=== PATIENT | female | born 1985 | race Caucasian/White ===

== ENCOUNTER 2017-05-08 16:38 | Emergency (ER) | payer BC ==
[2017-05-08 17:07] VITALS: BP 170/100; PULSE 83; RESP 16; TEMP 98
--- NOTE | 2017-05-08 18:11 | ED ---
General Adult HPI - General Chief complaint: Extremity Injury, Upper Stated complaint: Elbow Injury Time Seen by Provider: 05/08/17 17:12 Source: patient, RN notes reviewed Mode of arrival: ambulatory Limitations: no limitations - History of Present Illness Initial comments: Patient 31-year-old female who presents emergency room today with a chief complaint of a fall that occurred 4 days ago. She states she slipped on the ice falling down to the right elbow. She states it was a little bruised and sore for a few days per she states her last today she's noticed increased pain and redness and swelling to the area. She states it is more tender and worse with movements. Patient denies any other complaints or symptoms currently. She does admit to a little abrasion to the back of the elbow. Patient denies any recent fever, chills, shortness of breath, chest pain, back pain, abdominal pain, nausea or vomiting, numbness or tingling,headaches or visual changes, or any other complaints. - Related Data Home Medications Medication Instructions Recorded Confirmed Fexofenadine HCl [Karina Allergy] 180 mg PO DAILY PRN 05/08/17 05/08/17 Multivitamins, Thera [Multivitamin 1 tab PO DAILY 05/08/17 05/08/17 (formulary)] Previous Rx's Medication Instructions Recorded Cephalexin [Keflex] 500 mg PO Q12HR 10 Days cap 05/08/17 Allergies Allergy/AdvReac Type Severity Reaction Status Date / Time No Known Allergies Allergy Verified 05/08/17 17:13 Review of Systems ROS Statement: Those systems with pertinent positive or pertinent negative responses have been documented in the HPI. ROS Other: All systems not noted in ROS Statement are negative. Past Medical History Past Medical History: No Reported History History of Any Multi-Drug Resistant Organisms: None Reported Past Surgical History: No Surgical Hx Reported Past Psychological History: No Psychological Hx Reported Smoking Status: Never smoker Past Alcohol Use History: None Reported Past Drug Use History: None Reported General Exam - General Exam Comments Initial Comments: General: The patient is awake and alert, in no distress, and does not appear acutely ill. Neck: The neck is supple, there is no tenderness or JVD. Musculoskeletal: Patient does have moderate swelling to the posterior aspect of the right elbow. There is an abrasion centrally. No active drainage. There is local redness surrounding the area. It is warm on palpation. She shows good range of motion. Locally tender over the proximal ulna. Sensations are intact. Pulses are equal bilaterally 2+. Strength 5/5. Neurological: A&O x 3. CN II-XII intact, There are no obvious motor or sensory deficits. Coordination appears grossly intact. Speech is normal. Skin: Skin is warm and dry and no rashes or lesions are noted. Psychiatric: Normal mood and affect. Limitations: no limitations Course Vital Signs 05/08/17 17:05 Temperature 98 F Pulse Rate 83 Respiratory 16 Rate Blood Pressure 170/100 O2 Sat by Pulse 99 Oximetry Medical Decision Making - Medical Decision Making X-ray reviewed and is negative for any acute fracture dislocation. Results were discussed with the patient. Patient will be started on antibiotics to cover for cellulitis. Advised return if there is any increased worsening symptoms. Patient states understanding and is in agreement. Disposition Clinical Impression: Cellulitis Disposition: HOME SELF-CARE Condition: Good Instructions: Cellulitis (ED) Additional Instructions: Please use medication as discussed. Please follow-up with family doctor in the next 2 days of symptoms have not improved. Please return to emergency room if the symptoms increase or worsen or for any other concerns. Prescriptions: Cephalexin [Keflex] 500 mg PO Q12HR 10 Days cap Referrals: None,Stated [Primary Care Provider] - 1-2 days Caridad Butler MD [STAFF PHYSICIAN] - 1-2 days Perez Hickey DO [Doctor of Osteopathic Medicine] - 1-2 days Time of Disposition: 18:35
--- NOTE | 2017-05-08 18:13 | XR ---
EXAMINATION TYPE: XR elbow complete RT DATE OF EXAM: 05/08/2017 COMPARISON: NONE HISTORY: Fall with pain. TECHNIQUE: 4 views right elbow were obtained. FINDINGS: No acute fracture or subluxation is seen. There is no joint effusion identified. There is n o radiopaque foreign body. There is some subcuticular edema noted in the forearm. IMPRESSION: No acute abnormality.
[2017-05-08] MEDS ORDERED: CEPHALEXIN 500MG STARTER PACK 4 CAP BTL PO STA (18:35)
== END 2017-05-08 18:54 | disposition home or self-care (01) ==
LOC: EC 16:38
DX: L03.113 Cellulitis of right upper limb (principal); W00.0XXA Fall on same level due to ice and snow, initial encounter
CPT/HCPCS: 99283

== ENCOUNTER → 2020-03-26 | Outpatient (CLI) | payer BC ==
--- NOTE | 2020-03-26 10:49 | US ---
EXAMINATION TYPE: US kidneys/renal and bladder DATE OF EXAM: 03/26/2020 COMPARISON: NONE CLINICAL HISTORY: N18.9 Chronic Kidney Disease. abnormal labs. No pain. EXAM MEASUREMENTS: Right Kidney: 7.5 x 4.0 x 2.8 cm Left Kidney: 7.4 x 3.7 x 4.0 cm Right Kidney: Appears echogenic and small in size Left Kidney: Appears echogenic and small in size Bladder: anechoic, moderately distended Bilateral Jets not seen There is no evidence for hydronephrosis at this point in time. No nephrolithiasis is seen. No josue s are identified. The urinary bladder is anechoic. Bilateral ureteral jets are seen. IMPRESSION: The findings suggest medical renal disease.
== END | disposition home or self-care (01) ==
LOC: RADUSWWP 10:20
PROVIDERS: ATTEND Family Medicine
DX: N18.9 Chronic kidney disease, unspecified (principal)
CPT/HCPCS: 76770

== ENCOUNTER → 2021-02-20 | Outpatient (CLI) | payer BC ==
--- NOTE | 2021-02-21 09:36 | ECHOF ---
Referral Reason:R01.1 MEASUREMENTS -------- HEIGHT: 160.0 cm WEIGHT: 62.6 kg BP: RVIDd: 2.4 cm (< 3.3) IVSd: 1.0 cm (0.6 - 1.1) LVIDd: 3.8 cm (3.9 - 5.3) LVPWd: 0.9 cm (0.6 - 1.1) IVSs: 1.5 cm LVIDs: 2.8 cm LVPWs: 1.1 cm LAESV Index (A-L): 18.69 ml/m Ao Diam: 2.6 cm (2.0 - 3.7) AV Cusp: 1.7 cm (1.5 - 2.6) LA Diam: 3.1 cm (2.7 - 3.8) MV EXCURSION: 18.482 mm (> 18.000) MV EF SLOPE: 122 mm/s (70 - 150) EPSS: 0.2 cm MV E Sebastian: 0.97 m/s MV DecT: 191 ms MV A Sebastian: 0.63 m/s MV E/A Ratio: 1.54 RAP: 5.00 mmHg RVSP: 25.42 mmHg FINDINGS -------- Sinus rhythm. This was a technically adequate study. The left ventricular size is normal. Left ventricular wall thickness is normal. Overall left vent ricular systolic function is normal with, an EF between 55 - 60 %. The diastolic filling pattern is normal for the age of the patient 10.96. The right ventricle is normal in size. Normal LA size by volume 22+/-6 ml/m2. The right atrial size is normal. Interatrial and interventricular septum intact. The aortic valve is trileaflet and appears structurally normal. There is no evidence of aortic regu rgitation. There is no evidence of aortic stenosis. There is trace to mild mitral regurgitation. Mild tricuspid regurgitation present. There is no evidence of pulmonary hypertension. The right v entricular systolic pressure, as measured by Doppler, is 25.42mmHg. There is no pulmonic regurgitation present. The aortic root size is normal. Normal inferior vena cava with normal inspiratory collapse consistent with estimated right atrial pre ssure of 5 mmHg. There is no pericardial effusion. CONCLUSIONS -------- 1. The left ventricular size is normal. 2. Left ventricular wall thickness is normal. 3. Overall left ventricular systolic function is normal with, an EF between 55 - 60 %. 4. The diastolic filling pattern is normal for the age of the patient 10.96 5. There is trace to mild mitral regurgitation. 6. Mild tricuspid regurgitation present. CRIME ANALYST: Dorinda Escobar RDCS
== END | disposition home or self-care (01) ==
LOC: RADECHMAIN 14:39
PROVIDERS: ATTEND Family Medicine
DX: I34.0 Nonrheumatic mitral (valve) insufficiency (principal); I07.1 Rheumatic tricuspid insufficiency
CPT/HCPCS: 93306

== ENCOUNTER → 2021-06-02 | Outpatient (CLI) | payer BC ==
--- NOTE | 2021-06-02 14:38 | XR ---
EXAMINATION TYPE: XR chest 2V DATE OF EXAM: 06/02/2021 COMPARISON: NONE TECHNIQUE: PA and lateral views submitted. HISTORY: Presurgical FINDINGS: The lungs are clear and there is no pneumothorax, pleural effusion, or focal pneumonia. Heart size normal. No overt failure. IMPRESSION: 1. No acute process.
== END | disposition home or self-care (01) ==
LOC: RADXRMAIN 14:17
PROVIDERS: ATTEND Internal Medicine
DX: N18.5 Chronic kidney disease, stage 5 (principal)
CPT/HCPCS: 71046

== ENCOUNTER 2021-06-06 07:39 | Day surgery (SDC) | payer BC ==
[2021-06-05 10:16] VITALS: BMI 24.4
--- NOTE | 2021-06-06 07:13 | P.GSHP ---
History of Present Illness H&P Date: 06/06/21 Chief Complaint: Renal failure 35-year-old female here today for peritoneal dialysis catheter. She was previously seen in the office setting. Has had progressive renal insufficiency. No abdominal surgeries. Patient would like to proceed with peritoneal dialysis as opposed to hemodialysis. Past Medical History Past Medical History: Hypertension, Renal Disease Additional Past Medical History / Comment(s): renal failure, to start dialysis, no sx., still w/good urine output History of Any Multi-Drug Resistant Organisms: None Reported Past Surgical History: No Surgical Hx Reported Additional Past Anesthesia/Blood Transfusion Reaction / Comment(s): no family problems, pt has never had sedation Smoking Status: Never smoker - Past Family History Mother Family Medical History: No Reported History Medications and Allergies Home Medications Medication Instructions Recorded Confirmed Type Fexofenadine HCl [Karina Allergy] 180 mg PO DAILY 05/08/17 06/05/21 History Multivitamins, Thera [Multivitamin 1 tab PO DAILY 05/08/17 06/05/21 History (formulary)] Allopurinol [Zyloprim] 100 mg PO DAILY 06/05/21 06/05/21 History Ergocalciferol [Vitamin D2 (1250 1,250 mcg PO WEEKLY 06/05/21 06/05/21 History Mcg = 19173 Iu)] Ferrous Sulfate [Feosol] 325 mg PO Q2D 06/05/21 06/05/21 History Furosemide [Lasix] 40 mg PO Q4D 06/05/21 06/05/21 History calcitrioL [Calcitriol] 0.25 mcg PO WEEKLY 06/05/21 06/05/21 History hydrALAZINE HCL [Apresoline] 50 mg PO TID 06/05/21 06/05/21 History Allergies Allergy/AdvReac Type Severity Reaction Status Date / Time No Known Allergies Allergy Verified 06/05/21 09:40 Surgical - Exam Physical exam: General: Well-developed, well-nourished HEENT: Normocephalic, sclerae nonicteric Abdomen: Nontender, nondistended Extremities: No edema Neuro: Alert and oriented Assessment and Plan (1) Renal failure Narrative/Plan: Will proceed with peritoneal dialysis catheter insertion at this time. Risks of bleeding, infection, leak, abscess, bowel injury, catheter malfunction, anesthesia complications reviewed. She understands and wishes to proceed. Status: Acute Code(s): N19 - UNSPECIFIED KIDNEY FAILURE SNOMED Code(s): 82215174
[~2021-06-06 07:39] MED LIST: ACETAMINOPHEN TAB 500 MG TAB PO PRN; DEXAMETHASONE SOD PHOSPHATE 4 MG/ML 1 ML VIAL IV ONE; HEPARIN SODIUM,PORCINE/PF 5,000 UNIT/0.5 ML SYRINGE SQ PRN; HYDROmorphone 0.5 MG/0.5 ML SYRINGE IVP PRN; LACTATED RINGERS 1,000 ML IV SCH; MIDAZOLAM 2 MG/2 ML VIAL IV PRN; ONDANSETRON 4 MG/2 ML VIAL IVP ONE; SCOPOLAMINE 1 MG/72 HR PATCH TRANSDERM ONE
[2021-06-06] MEDS ORDERED: HEPARIN SODIUM,PORCINE/PF 5,000 UNIT/0.5 ML SYRINGE SQ ONE (08:30)
[2021-06-06] MEDS ORDERED: ACETAMINOPHEN TAB 500 MG TAB ONE (08:30)
[2021-06-06] MEDS ORDERED: FAMOTIDINE 20 MG/2 ML VIAL IVP ONE (08:33)
[2021-06-06] MEDS ORDERED: fentaNYL (PF) 50 MCG/ML 2 ML AMP ONE (08:53)
[2021-06-06] MEDS ORDERED: LIDOCAINE 1% INJ 10MG/ML (20 ML MDV) ONE (08:53)
[2021-06-06] MEDS ORDERED: PROPOFOL 10 MG/ML 20 ML VIAL IV ONE (08:53)
[2021-06-06] MEDS ORDERED: PHENYLEPHRINE-0.9% NACL SYG 1,000 MCG/10 ML SYRINGE ONE (08:53)
[2021-06-06] MEDS ORDERED: MIDAZOLAM 2 MG/2 ML VIAL ONE (08:53)
[2021-06-06 08:57] LABS: Potassium 4.6 mmol/L (3.5-5.1)
[2021-06-06] MEDS ORDERED: BUPIVACAIN-EPI 0.25%-1:200,000 30 ML VIAL SQ ONE (09:04)
[2021-06-06] MEDS ORDERED: MINERAL OIL 1 APPLIC/ML OIL MISCELLANE ONE (09:04)
[2021-06-06] MEDS ORDERED: traMADol 50 MG TAB PO PRN (09:50)
[2021-06-06] MEDS ORDERED: NALOXONE 0.4 MG/ML 1 ML VIAL IV PRN (09:50)
--- NOTE | 2021-06-06 09:53 | P.OP ---
Date of Procedure: 06/06/21 Procedure(s) Performed: PREOPERATIVE DIAGNOSIS: Renal failure POSTOPERATIVE DIAGNOSIS: Same PROCEDURE: Peritoneal dialysis catheter insertion SURGEON: Rand EBL: Minimal ANESTHESIA: Gen. COMPLICATIONS: None OPERATIVE PROCEDURE: The patient was placed in the operative table in the supine position. The abdomen was prepped and draped in usual sterile fashion. A small vertical incision was made in the right periumbilical location. Dissection down through the subcutaneous tissues took place using electrocautery. The anterior rectus was divided vertically using the scalpel. The rectus was bluntly. The posterior rectus was visualized. An 0 Vicryl pursestring was placed. A small opening in the posterior rectus fascia and peritoneum took place using a Metzenbaum scissors. There were no adhesions to the suture that was placed. The pigtail catheter was advanced into the pelvis over a stylette. No resistance was met. The inner cuff was secured to the fascia using the 0 Vicryl pursestring that was placed. The catheter was tunneled to an exit site in the right lateral lower quadrant. The catheter was connected to the 1 L bag of saline and approximated 800 mL of saline was easily introduced into the peritoneal cavity. The fluid was then allowed to evacuate. The majority of the fluid was returned. The anterior rectus fascia was then reapproximated using a running 0 Vicryl stitch. The subcutaneous tissues reprepped using 3-0 Vicryl sutures and the skin using 4-0 Monocryl sutures. The outpatient dialysis adapter was applied to the end of the catheter. Sterile dressings were then applied after skin glue was placed over the incision. DISPOSITION: Stable to recovery room
[2021-06-06 09:57] VITALS: TEMP 96.8
[2021-06-06 10:59] VITALS: RESP 16
[2021-06-06 11:16] VITALS: BP 138/92; PULSE 69
== END 2021-06-06 11:20 | disposition home or self-care (01) ==
LOC: OR 07:39
PROVIDERS: ATTEND Surgery
DX: N19 Unspecified kidney failure (principal); I10 Essential (primary) hypertension; Z79.899 Other long term (current) drug therapy
CPT/HCPCS: 49421; 81025; 82565; 84132; 84520; C1752; J2250; J1100; J0690; J2405; J2001; J3010; J2370; J2704; J1644

== ENCOUNTER 2023-02-04 14:40 | Inpatient (IN) | payer BC ==
--- NOTE | 2023-02-04 16:29 | ED ---
Recheck HPI - General Chief Complaint: Recheck/Abnormal Lab/Rx Stated Complaint: infection Time Seen by Provider: 02/04/23 16:28 Source: patient Mode of arrival: ambulatory Limitations: no limitations - History of Present Illness Initial Comments: 37-year-old female presenting after being sent by her jet ski mechanic for positive blood cultures. Patient was having cloudy fluid with her peritoneal dialysis, which prompted her physician she dropped blood cultures that came back positive today. Patient states that she is having no symptoms, denies any fever, chills, nausea, vomiting. - Related Data Home Medications Medication Instructions Recorded Confirmed Furosemide [Lasix] 40 mg PO DIRECTED 06/05/21 02/04/23 calcitrioL [Calcitriol] 0.25 mcg PO HS 06/05/21 02/04/23 Atorvastatin [Lipitor] 20 mg PO HS 02/04/23 02/04/23 Ezetimibe [Zetia] 10 mg PO HS 02/04/23 02/04/23 Famotidine [Pepcid] 20 mg PO BID PRN 02/04/23 02/04/23 Levothyroxine Sodium [Synthroid] 50 mcg PO DAILY 02/04/23 02/04/23 Losartan Potassium 50 mg PO DAILY@1330 02/04/23 02/04/23 Magnesium Oxide [Mag-Ox] 400 mg PO W/SUPPER 02/04/23 02/04/23 Sodium Bicarbonate Tab 650 mg PO DAILY@1330 02/04/23 02/04/23 Allergies Allergy/AdvReac Type Severity Reaction Status Date / Time No Known Allergies Allergy Verified 02/04/23 19:44 Review of Systems ROS Statement: Those systems with pertinent positive or pertinent negative responses have been documented in the HPI. ROS Other: All systems not noted in ROS Statement are negative. Past Medical History Past Medical History: Renal Disease Additional Past Medical History / Comment(s): end stage kidney failure, dialysis History of Any Multi-Drug Resistant Organisms: None Reported Past Surgical History: No Surgical Hx Reported Additional Past Surgical History / Comment(s): dilaysis cath Past Psychological History: No Psychological Hx Reported Smoking Status: Never smoker Past Alcohol Use History: None Reported Past Drug Use History: None Reported General Exam - General Exam Comments Initial Comments: Visual Physical Exam Vital signs reviewed General: Well-appearing, nontoxic, no acute distress. Head: Normocephalic, atraumatic Eyes: PERRLA, EOMI ENT: Airway patent Chest: Nonlabored breathing Skin: No visual rash, normal skin tone Neuro: Alert and oriented 3 Musculoskeletal: No gross abnormalities Limitations: no limitations General appearance: alert, in no apparent distress Head exam: Present: atraumatic, normocephalic, normal inspection Eye exam: Present: normal appearance Neck exam: Present: normal inspection Respiratory exam: Present: normal lung sounds bilaterally. Absent: respiratory distress, wheezes, rales, rhonchi, stridor Cardiovascular Exam: Present: regular rate, normal rhythm, normal heart sounds. Absent: systolic murmur, diastolic murmur, rubs, gallop, clicks Neurological exam: Present: alert, oriented X3 Psychiatric exam: Present: normal affect, normal mood Skin exam: Present: warm, dry, intact, normal color. Absent: rash Course Vital Signs 02/04/23 02/05/23 15:13 00:35 Temperature 97.6 F Pulse Rate 79 Respiratory 16 Rate Blood Pressure 139/83 154/95 O2 Sat by Pulse 100 Oximetry Medical Decision Making - Medical Decision Making Was pt. sent in by a medical professional or institution (, PA, BUSINESS ANALYST PROJECT MANAGER, urgent care, hospital, or skilled nursing...) When possible be specific @ -She was sent in by her jet ski mechanic Dr. Mckeon Did you speak to anyone other than the patient for history (EMS, parent, family, police, friend...)? What history was obtained from this source @ -No Did you review nursing and triage notes (agree or disagree)? Why? @ -I reviewed and agree with nursing and triage notes Were old charts reviewed (outside hosp., previous admission, EMS record, old EKG, old radiological studies, urgent care reports/EKG's, skilled nursing records)? Report findings @ -No old charts were reviewed Differential Diagnosis (chest pain, altered mental status, abdominal pain women, abdominal pain men, vaginal bleeding, weakness, fever, dyspnea, syncope, headache, dizziness, GI bleed, back pain, seizure, CVA, palpatations, mental health, musculoskeletal)? @ -not applicable EKG interpreted by me (3pts min.). @ -As above X-rays interpreted by me (1pt min.). @ -None done CT interpreted by me (1pt min.). @ -None done U/S interpreted by me (1pt. min.). @ -None done What testing was considered but not performed or refused? (CT, X-rays, U/S, labs)? Why? @ -None What meds were considered but not given or refused? Why? @ -None Did you discuss the management of the patient with other professionals (professionals i.e. Dr., PA, BUSINESS ANALYST PROJECT MANAGER, lab, RT, psych nurse, rn social services, salon sales consultant, teacher, loan officer assistant, leather case finisher)? Give summary @ -I spoke with Joyce Daniels from [facility] accepted admission Was smoking cessation discussed for >3mins.? @ -No Was critical care preformed (if so, how long)? @ -No Were there social determinants of health that impacted care today? How? (Homelessness, low income, unemployed, alcoholism, drug addiction, transportation, low edu. Level, literacy, decrease access to med. care, nursing home, rehab)? @ -No Was there de-escalation of care discussed even if they declined (Discuss DNR or withdrawal of care, Hospice)? DNR status @ -No What co-morbidities impacted this encounter? (DM, HTN, Smoking, COPD, CAD, Cancer, CVA, ARF, Chemo, Hep., AIDS, mental health diagnosis, sleep apnea, morbid obesity)? @ -Peritoneal dialysis Was patient admitted / discharged? Hospital course, mention meds given and route, prescriptions, significant lab abnormalities, going to OR and other pertinent info. @ -37-year-old female sent in by her jet ski mechanic for positive blood cultures. Patient is otherwise asymptomatic. She will be admitted and is treated with an empiric dose of Zosyn. Blood cultures are redrawn prior to antibiotic initiation. Patient is agreeable with this plan. I discussed this case with my attending Dr. Lux Undiagnosed new problem with uncertain prognosis? @ -No Drug Therapy requiring intensive monitoring for toxicity (Heparin, Nitro, Insulin, Cardizem)? @ -No Were any procedures done? @ -No Diagnosis/symptom? @ -Peritonitis Acute, or Chronic, or Acute on Chronic? @ -Acute Uncomplicated (without systemic symptoms) or Complicated (systemic symptoms)? @ -Complicated Side effects of treatment? @ -No Exacerbation, Progression, or Severe Exacerbation? @ -No Poses a threat to life or bodily function? How? (Chest pain, [place], [place], pneumonia, PE, COPD, DKA, ARF, appy, cholecystitis, CVA, Diverticulitis, Homicidal, Suicidal, threat to staff... and all critical care pts) @ -yes - Lab Data Result diagrams: 02/04/23 17:00 02/04/23 17:00 Lab Results 02/04/23 02/04/23 02/04/23 Range/Units 17:00 17:00 17:00 WBC 7.9 (3.8-10.6) k/uL RBC 3.95 (3.80-5.40) m/uL Hgb 12.5 (11.4-16.0) gm/dL Hct 37.4 (34.0-46.0) % MCV 94.7 (80.0-100.0) fL MCH 31.6 (25.0-35.0) pg MCHC 33.4 (31.0-37.0) g/dL RDW 12.9 (11.5-15.5) % Plt Count 274 (150-450) k/uL MPV 7.5 Neutrophils % 72 % Lymphocytes % 20 % Monocytes % 5 % Eosinophils % 2 % Basophils % 0 % Neutrophils # 5.7 (1.3-7.7) k/uL Lymphocytes # 1.5 (1.0-4.8) k/uL Monocytes # 0.4 (0-1.0) k/uL Eosinophils # 0.2 (0-0.7) k/uL Basophils # 0.0 (0-0.2) k/uL Sodium 136 L (137-145) mmol/L Potassium 3.8 (3.5-5.1) mmol/L Chloride 99 (98-107) mmol/L Carbon Dioxide 23 (22-30) mmol/L Anion Gap 14 mmol/L BUN 77 H (7-17) mg/dL Creatinine 7.65 H* (0.52-1.04) mg/dL Est GFR (CKD-EPI)AfAm 7 (>60 ml/min/1.73 sqM) Est GFR (CKD-EPI)NonAf 6 (>60 ml/min/1.73 sqM) Glucose 94 (74-99) mg/dL Plasma Lactic Acid Francesco 0.7 (0.7-2.0) mmol/L Calcium 9.4 (8.4-10.2) mg/dL Total Bilirubin 0.4 (0.2-1.3) mg/dL AST 32 (14-36) U/L ALT 32 (4-34) U/L Alkaline Phosphatase 128 H (38-126) U/L Total Protein 7.0 (6.3-8.2) g/dL Albumin 4.2 (3.5-5.0) g/dL Disposition Clinical Impression: Peritonitis Disposition: ADMITTED IP TO THIS HOSP Condition: Stable
[2023-02-04 17:42] LABS: Basophils % (A) 0 %; Eosinophils # (A) 0.2 k/uL (0-0.7); Eosinophils % (A) 2 %; HCT 37.4 % (34.0-46.0); HGB 12.5 gm/dL (11.4-16.0); Lymphocytes # (A) 1.5 k/uL (1.0-4.8); Lymphocytes % (A) 20 %; MCH 31.6 pg (25.0-35.0); MCHC 33.4 g/dL (31.0-37.0); MCV 94.7 fL (80.0-100.0); Mean Platelet Volume 7.5; Monocytes # (A) 0.4 k/uL (0-1.0); Monocytes % (A) 5 %; Neutrophils # (A) 5.7 k/uL (1.3-7.7); Neutrophils % (A) 72 %; Platelet Count 274 k/uL (150-450); RBC 3.95 m/uL (3.80-5.40); RDW 12.9 % (11.5-15.5); WBC 7.9 k/uL (3.8-10.6)
[2023-02-04 17:58] LABS: ALT 32 U/L (4-34); AST 32 U/L (14-36); African American GFR (CKD) 7 (>60 ml/min/1.73 sqM); Albumin 4.2 g/dL (3.5-5.0); Alkaline Phosphatase 128 U/L (38-126); Anion Gap 14 mmol/L; Blood Urea Nitrogen 77 mg/dL (7-17); Calcium 9.4 mg/dL (8.4-10.2); Carbon Dioxide 23 mmol/L (22-30); Chloride 99 mmol/L (98-107); Glucose 94 mg/dL (74-99); Non-African American GFR(CKD) 6 (>60 ml/min/1.73 sqM); Potassium 3.8 mmol/L (3.5-5.1); Sodium 136 mmol/L (137-145); Total Bilirubin 0.4 mg/dL (0.2-1.3)
[2023-02-04] MEDS ORDERED: PIPERACILLIN-TAZOBACTAM 3.375 GM in SODIUM CHLORIDE 0.9% 100 ML IVPB STA (19:48)
[2023-02-04] MEDS ORDERED: NALOXONE 0.4 MG/ML 1 ML VIAL IV PRN (19:50)
[2023-02-04] MEDS: SODIUM CHLORIDE 0.9% 1,000 ML IV SCH (21:08)
[2023-02-04] MEDS ORDERED: IOPAMIDOL CONTRAST (ORAL USE) VIAL PO PRN (22:47)
[2023-02-05] MEDS: DIALYSIS (PERIT 1.5%) 2,000 ML 30 G/2,000 ML BAG INTRAPERIT SCH ×5 (00:31→23:36)
[2023-02-05] MEDS ORDERED: VANCOMYCIN IV PER PHARMACY 1 EACH MISC MISCELLANE PRN (01:24)
[2023-02-05] MEDS ORDERED: VANCOMYCIN 1,000 MG in SODIUM CHLORIDE 0.9% 250 ML IVPB STA (01:31)
--- NOTE | 2023-02-05 02:31 | CT ---
EXAM: CT Abdomen and Pelvis Without Intravenous Contrast CLINICAL HISTORY: ITS.REASON CT Reason: peritonitis bloodstream infection post dialysis has dialysis catheter in lower abdomen TECHNIQUE: Axial computed tomography images of the abdomen and pelvis without intravenous contrast. CTDI is 7.6 mGy and DLP is 445.4 mGy-cm. This CT exam was performed using one or more of the following dose reduction techniques: automated exposure control, adjustment of the mA and/or kV according to patient size, and/or use of iterative reconstruction technique. COMPARISON: No relevant prior studies available. FINDINGS: Lung bases: Unremarkable. No mass. No consolidation. Mediastinum: Small hiatal hernia. ABDOMEN: Liver: Unremarkable. Gallbladder and bile ducts: Unremarkable. No calcified stones. No ductal dilation. Pancreas: Unremarkable. No ductal dilation. Spleen: Unremarkable. No splenomegaly. Adrenals: Unremarkable. No mass. Kidneys and ureters: Right renal low-density lesion, likely cyst. Small [place] kidneys. No obstructing stones. No hydronephrosis. Stomach and bowel: Unremarkable. No obstruction. No mucosal thickening. PELVIS: Appendix: Normal appendix. Bladder: Unremarkable. No stones. Reproductive: Unremarkable as visualized. ABDOMEN and PELVIS: Intraperitoneal space: No free air. See below. Bones/joints: No acute fracture. No dislocation. Soft tissues: Unremarkable. Vasculature: Unremarkable. No abdominal aortic aneurysm. Lymph nodes: Unremarkable. No enlarged lymph nodes. Tubes, lines and devices: Peritoneal dialysis catheter in the pelvis. Moderate fluid in the abdomen and pelvis, including around the peritoneal dialysis catheter. No clear discrete fluid collection although limited evaluation on this noncontrast study. IMPRESSION: Moderate fluid in the abdomen and pelvis, including around the peritoneal dialysis catheter. No clear discrete fluid collection although limited evaluation on this noncontrast study.
[2023-02-05] MEDS: PANTOPRAZOLE 40 MG TABLET PO SCH ×2 (06:50→17:02)
[2023-02-05] MEDS: LEVOTHYROXINE 50 MCG TAB PO SCH (06:50)
[2023-02-05 09:09] LABS: BUN/Creat Ratio 10.28 Ratio (12.00-20.00); Blood Urea Nitrogen 70.9 mg/dL (9.0-27.0); Calcium 9.3 mg/dL (8.7-10.3); Carbon Dioxide 21.6 mmol/L (21.6-31.8); Chloride 106 mmol/L (96-109); Glucose 103 mg/dL (70-110); Magnesium 2.2 mg/dL (1.5-2.4); Potassium 4.4 mmol/L (3.5-5.5); Sodium 138 mmol/L (135-145)
--- NOTE | 2023-02-05 11:25 | P.NPCON ---
History of Present Illness - Reason for Consult end stage renal disease - History of Present Illness Reason for consultation: End-stage renal disease History of present illness: Patient is a 37-year-old female seen in renal consultation for end-stage renal disease. She is maintained on peritoneal dialysis. Patient developed episode of gram-positive peritonitis in November 2022 and completed intraperitoneal antibiotics on 12/29/2022. Patient cell count at that time was negative area on 01/27/2023 patient developed gram-positive peritonitis again and was started on intraperitoneal vancomycin as well as rifampin. Patient also had blood cultures done on 02/02/2023 which came back positive for gram-positive bacilli. These were done at [facility]. Patient's dialysate cell count on was less than 20. Patient states her exit site is clean and dialysate fluid is clear. She's being followed by infectious disease and has been started on IV vancomycin. She denies fever or chills. No chest pain or shortness of breath. No vomiting or diarrhea. No abdominal pain. Vital signs are stable. General: No acute distress. HEENT: Head exam is unremarkable. LUNGS: No audible rhonchi or wheezes. HEART: Rate and Rhythm are regular. ABDOMEN: Nontender. EXTREMITITES: No edema. Past Medical History Past Medical History: Hypertension, Renal Disease Additional Past Medical History / Comment(s): end stage kidney failure, dialysis History of Any Multi-Drug Resistant Organisms: None Reported Past Surgical History: No Surgical Hx Reported Additional Past Surgical History / Comment(s): dilaysis cath Past Anesthesia/Blood Transfusion Reactions: No Reported Reaction Past Psychological History: No Psychological Hx Reported Smoking Status: Never smoker Past Alcohol Use History: None Reported Past Drug Use History: None Reported Medications and Allergies Home Medications Medication Instructions Recorded Confirmed Type Furosemide [Lasix] 40 mg PO DIRECTED 06/05/21 02/04/23 History calcitrioL [Calcitriol] 0.25 mcg PO HS 06/05/21 02/04/23 History Atorvastatin [Lipitor] 20 mg PO HS 02/04/23 02/04/23 History Ezetimibe [Zetia] 10 mg PO HS 02/04/23 02/04/23 History Famotidine [Pepcid] 20 mg PO BID PRN 02/04/23 02/04/23 History Levothyroxine Sodium [Synthroid] 50 mcg PO DAILY 02/04/23 02/04/23 History Losartan Potassium 50 mg PO DAILY@1330 02/04/23 02/04/23 History Magnesium Oxide [Mag-Ox] 400 mg PO W/SUPPER 02/04/23 02/04/23 History Sodium Bicarbonate Tab 650 mg PO DAILY@1330 02/04/23 02/04/23 History Allergies Allergy/AdvReac Type Severity Reaction Status Date / Time No Known Allergies Allergy Verified 02/04/23 19:44 Physical Exam Vitals: Vital Signs Temp Pulse Pulse Resp BP BP Pulse Ox 02/05/23 07:00 75 16 149/88 99 02/05/23 06:34 85 165/89 02/05/23 06:08 76 132/82 02/05/23 03:03 97.9 F 68 18 157/90 100 02/05/23 02:00 68 16 137/69 95 02/05/23 00:35 154/95 02/04/23 15:13 97.6 F 79 16 139/83 100 Intake and Output 02/04/23 02/05/23 02/05/23 22:59 06:59 14:59 Other: # Voids 1 Weight 58.967 kg 58.967 kg Results - Lab Results Most recent lab results Calcium 9.3 mg/dL (8.7-10.3) 02/05/23 05:47 Magnesium 2.2 mg/dL (1.5-2.4) 02/05/23 05:47 02/04/23 17:00 02/05/23 05:47 Assessment and Plan Plan: Assessment: 1. End-stage renal disease maintained on peritoneal dialysis. 2. PD associated peritonitis in November 2022 with culture positive for gram- positive and completed intraperitoneal antibiotics with cell count less than 20. Again developed gram-positive peritonitis and is currently being treated with intraperitoneal vancomycin. 3. Gram-positive bacteremia on blood cultures done 02/02/2023 at [facility] - dialysate neutrophil cell count was less than 20 from 02/02/2023. No evidence of exit site infection. No acute changes on CAT scan of the abdomen and pelvis. ? Secondary peritoneal seeding. 4. Hypertension with chronic kidney disease. 5. Chronic kidney disease mineral bone disease maintained on calcitriol. Plan: Change PD exchanges to every 4 hours. Patient received intraperitoneal vancomycin on 01/27/2023 and second dose on 02/01/2023. She is scheduled to receive next dose of intraperitoneal vancomycin on 02/06/2023. She is currently on IV vancomycin due to bacteremia per ID. Patient also on rifampin for one week which will be continued. Follow-up blood cultures. Follow-up dialysate cell count and culture. Monitor vancomycin levels. Dose to be adjusted for renal function. Discussed with patient that PD catheter may need to be removed if has refractory peritonitis or if has another episode of peritonitis in the near future. Thank you for the consultation. I will continue to follow the patient with you during her hospital stay.
[2023-02-05 11:35] LABS: Appearance,BF Clear (Clear)
[2023-02-05] MEDS: SODIUM CHLORIDE 0.9% 1,000 ML IV SCH (11:40)
--- NOTE | 2023-02-05 12:02 | P.HPIM ---
History of Present Illness Patient is a pleasant that 37-year-old female with end-stage renal disease on peritoneal dialysis was seen at [facility] for peritonitis with gram- positive organisms unknown whether it's gram-positive bacilli are cocci, for the second time and presently blood cultures also positive organisms patient is presently on vancomycin and he has to struggle review the culture reports from [facility] patient was evaluated by infectious disease repeat cultures are being obtained. She doesn't have any fever or leukocytosis at this time. Patient wasn't dialysate is clear REVIEW OF SYSTEMS: CONSTITUTIONAL: No fever, no malaise, no fatigue. HEENT: No recent visual problems or hearing problems. Denied any sore throat. CARDIOVASCULAR: No chest pain, orthopnea, PND, no palpitations, no syncope. PULMONARY: No shortness of breath, no cough, no hemoptysis. GASTROINTESTINAL: No diarrhea, no nausea, no vomiting, no abdominal pain. NEUROLOGICAL: No headaches, no weakness, no numbness. HEMATOLOGICAL: Denies any bleeding or petechiae. GENITOURINARY: Denies any burning micturition, frequency, or urgency. MUSCULOSKELETAL/RHEUMATOLOGICAL: Denies any joint pain, swelling, or any muscle pain. ENDOCRINE: Denies any polyuria or polydipsia. The rest of the 14-point review of systems is negative. PHYSICAL EXAMINATION: GENERAL: The patient is alert and oriented x3, not in any acute distress. Well developed, well nourished. HEENT: Pupils are round and equally reacting to light. EOMI. No scleral icterus. No conjunctival pallor. Normocephalic, atraumatic. No pharyngeal erythema. No thyromegaly. CARDIOVASCULAR: S1 and S2 present. No murmurs, rubs, or gallops. PULMONARY: Chest is clear to auscultation, no wheezing or crackles. ABDOMEN: Soft, nontender, nondistended, normoactive bowel sounds. No palpable organomegaly. Peritoneal dialysis catheter site is clear MUSCULOSKELETAL: No joint swelling or deformity. EXTREMITIES: No cyanosis, clubbing, or pedal edema. NEUROLOGICAL: Gross neurological examination did not reveal any focal deficits. SKIN: No rashes. Assessment and plan -Gram-positive bacteremia awaiting organism identification and sensitivities. A she is on vancomycin intraperitoneally as well as IV because of the bacteremia. Source being peritoneal dialysis catheter. Blood cultures. -End-stage peritoneal dialysis continued peritoneal dialysis for now -Hypertension resumed on home medications DVT prophylaxis: Ambulation Past Medical History Past Medical History: Hypertension, Renal Disease Additional Past Medical History / Comment(s): end stage kidney failure, dialysis History of Any Multi-Drug Resistant Organisms: None Reported Past Surgical History: No Surgical Hx Reported Additional Past Surgical History / Comment(s): dilaysis cath Past Anesthesia/Blood Transfusion Reactions: No Reported Reaction Past Psychological History: No Psychological Hx Reported Smoking Status: Never smoker Past Alcohol Use History: None Reported Past Drug Use History: None Reported Medications and Allergies Home Medications Medication Instructions Recorded Confirmed Type Furosemide [Lasix] 40 mg PO DIRECTED 06/05/21 02/04/23 History calcitrioL [Calcitriol] 0.25 mcg PO HS 06/05/21 02/04/23 History Atorvastatin [Lipitor] 20 mg PO HS 02/04/23 02/04/23 History Ezetimibe [Zetia] 10 mg PO HS 02/04/23 02/04/23 History Famotidine [Pepcid] 20 mg PO BID PRN 02/04/23 02/04/23 History Levothyroxine Sodium [Synthroid] 50 mcg PO DAILY 02/04/23 02/04/23 History Losartan Potassium 50 mg PO DAILY@1330 02/04/23 02/04/23 History Magnesium Oxide [Mag-Ox] 400 mg PO W/SUPPER 02/04/23 02/04/23 History Sodium Bicarbonate Tab 650 mg PO DAILY@1330 02/04/23 02/04/23 History Allergies Allergy/AdvReac Type Severity Reaction Status Date / Time No Known Allergies Allergy Verified 02/04/23 19:44 Physical Exam Vitals: Vital Signs Temp Pulse Pulse Resp BP BP Pulse Ox 02/05/23 07:00 75 16 149/88 99 02/05/23 06:34 85 165/89 02/05/23 06:08 76 132/82 02/05/23 03:03 97.9 F 68 18 157/90 100 02/05/23 02:00 68 16 137/69 95 02/05/23 00:35 154/95 02/04/23 15:13 97.6 F 79 16 139/83 100 Intake and Output 02/04/23 02/05/23 02/05/23 22:59 06:59 14:59 Other: # Voids 1 Weight 58.967 kg 58.967 kg Results CBC & Chem 7: 02/04/23 17:00 02/05/23 05:47 Labs: Abnormal Lab Results - Last 24 Hours (Table) 02/04/23 02/05/23 Range/Units 17:00 05:47 Sodium 136 L (137-145) mmol/L BUN 77 H 70.9 H (7-17) mg/dL Creatinine 7.65 H* 6.9 H (0.52-1.04) mg/dL Est GFR (CKD-EPI) 7 L (>=60) BUN/Creatinine Ratio 10.28 L (12.00-20.00) Ratio Alkaline Phosphatase 128 H (38-126) U/L Thrombosis Risk Factor Assmnt - Choose All That Apply Other Risk Factors: No
[2023-02-05] MEDS ORDERED: LOSARTAN 50 MG TAB PO SCH (13:30)
[2023-02-05] MEDS ORDERED: SODIUM BICARBONATE TAB 650 MG TAB PO SCH (13:30)
[2023-02-05] MEDS ORDERED: MAGNESIUM OXIDE 400 MG TAB PO SCH (17:30)
[2023-02-05] MEDS ORDERED: ATORVASTATIN 20 MG TAB PO SCH (21:00)
[2023-02-05] MEDS ORDERED: EZETIMIBE 10 MG TAB PO SCH (21:00)
[2023-02-06] MEDS: SODIUM CHLORIDE 0.9% 1,000 ML IV SCH ×2 (01:24→13:06)
[2023-02-06] MEDS ORDERED: VANCOMYCIN 1,000 MG in SODIUM CHLORIDE 0.9% 250 ML IVPB ONE (02:00)
[2023-02-06] MEDS: DIALYSIS (PERIT 1.5%) 2,000 ML 30 G/2,000 ML BAG INTRAPERIT SCH ×2 (04:15→08:29)
[2023-02-06 05:16] VITALS: RESP 18; TEMP 98.2
[2023-02-06] MEDS: LEVOTHYROXINE 50 MCG TAB PO SCH (06:33)
[2023-02-06] MEDS: PANTOPRAZOLE 40 MG TABLET PO SCH (06:33)
[2023-02-06 08:57] VITALS: BP 156/81; PULSE 80
--- NOTE | 2023-02-06 09:16 | P.CONS ---
History of Present Illness - Reason for Consult Consult date: 02/05/23 - History of Present Illness Patient is a 37-year-old female with a past medical history significant for end-stage renal disease on peritoneal dialysis for more than a year did have a previous episode of PD catheter associated peritonitis that has been treated with intraperitoneal vancomycin patient recently noticed to have some cloudy peritoneal fluid for the patient was started on intraperitoneal vancomycin and rifampin she also have blood cultures drawn which came back positive with gram-positive cocci for the patient was advised to come to the hospital. On presentation to the hospital patient was afebrile she was complaining of some chills patient denies having any headache or URI symptoms no chest pain shortness of breath or cough no nausea no vomiting she did have mild abdominal discomfort more of a dull aching pain without any radiation denies any further cloudy peritoneal fluid and denies having any diarrhea on arrival to the ER the patient did have a white count of 7.9 creatinine 7.65 peritoneal fluid analysis currently pending patient was started on IV vancomycin blood culture has been o btained infectious disease was consulted for further management of antibiotic therapy Past Medical History Past Medical History: Hypertension, Renal Disease Additional Past Medical History / Comment(s): end stage kidney failure, dialysis History of Any Multi-Drug Resistant Organisms: None Reported Past Surgical History: No Surgical Hx Reported Additional Past Surgical History / Comment(s): dilaysis cath Past Anesthesia/Blood Transfusion Reactions: No Reported Reaction Past Psychological History: No Psychological Hx Reported Smoking Status: Never smoker Past Alcohol Use History: None Reported Past Drug Use History: None Reported Medications and Allergies Home Medications Medication Instructions Recorded Confirmed Type Furosemide [Lasix] 40 mg PO DIRECTED 06/05/21 02/04/23 History calcitrioL [Calcitriol] 0.25 mcg PO HS 06/05/21 02/04/23 History Atorvastatin [Lipitor] 20 mg PO HS 02/04/23 02/04/23 History Ezetimibe [Zetia] 10 mg PO HS 02/04/23 02/04/23 History Famotidine [Pepcid] 20 mg PO BID PRN 02/04/23 02/04/23 History Levothyroxine Sodium [Synthroid] 50 mcg PO DAILY 02/04/23 02/04/23 History Losartan Potassium 50 mg PO DAILY@1330 02/04/23 02/04/23 History Magnesium Oxide [Mag-Ox] 400 mg PO W/SUPPER 02/04/23 02/04/23 History Sodium Bicarbonate Tab 650 mg PO DAILY@1330 02/04/23 02/04/23 History Allergies Allergy/AdvReac Type Severity Reaction Status Date / Time No Known Allergies Allergy Verified 02/04/23 19:44 Physical Exam Vitals: Vital Signs Temp Pulse Pulse Resp BP BP Pulse Ox 02/05/23 07:00 75 16 149/88 99 02/05/23 06:34 85 165/89 02/05/23 06:08 76 132/82 02/05/23 03:03 97.9 F 68 18 157/90 100 02/05/23 02:00 68 16 137/69 95 02/05/23 00:35 154/95 02/04/23 15:13 97.6 F 79 16 139/83 100 Intake and Output 02/04/23 02/05/23 02/05/23 22:59 06:59 14:59 Other: # Voids 1 Weight 58.967 kg 58.967 kg Results CBC & Chem 7: 02/04/23 17:00 02/05/23 05:47 Labs: Abnormal Lab Results - Last 24 Hours (Table) 02/04/23 02/05/23 Range/Units 17:00 05:47 Sodium 136 L (137-145) mmol/L BUN 77 H 70.9 H (7-17) mg/dL Creatinine 7.65 H* 6.9 H (0.52-1.04) mg/dL Est GFR (CKD-EPI) 7 L (>=60) BUN/Creatinine Ratio 10.28 L (12.00-20.00) Ratio Alkaline Phosphatase 128 H (38-126) U/L Assessment and Plan Plan: 1patient with an episode of PD catheter associated peritonitis leading to the hospital with bacteremia patient not running any fever white count is normal and did not have any evidence of abdominal infection at the PD catheter site with a question of true infection versus contamination 2-we will wait for the final on the blood culture drawn in the outpatient setting blood culture has been repeated here 3-we will wait for the peritoneal fluid analysis 4-vancomycin pharmacy to dose with a target trough of 15 while waiting for the workup to be completed We will follow on clinical condition and cultures to further adjust medication if needed Thank you for this consultation we will follow the patient along with you Dictation was produced using [employer] dictation software. please excuse any grammatical, word or spelling errors. Time with Patient: Greater than 30
--- NOTE | 2023-02-06 11:30 | P.PN ---
Subjective Patient is a pleasant that 37-year-old female with end-stage renal disease on peritoneal dialysis was seen at [facility] for peritonitis with gram- positive organisms unknown whether it's gram-positive bacilli are cocci, for the second time and presently blood cultures also positive organisms patient is presently on vancomycin and he has to struggle review the culture reports from [facility] patient was evaluated by infectious disease repeat cultures are being obtained. She doesn't have any fever or leukocytosis at this time. Patient wasn't dialysate is clear 02/06/2023 Awaiting repeat this. We'll obtain medical records from a [facility]. 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 Constitutional: Denied any fatigue denied any fever. Cardio vascular: denied any chest pain, palpitations Gastrointestinal denied any nausea vomiting Pulmonary: Denied any shortness of breath cough Neurologic denied any new focal deficits All inpatient medications were reviewed and appropriate changes in these medications as dictated in the interval history and assessment and plan. PHYSICAL EXAMINATION: GENERAL: The patient is alert and oriented x3, not in any acute distress. Well developed, well nourished. HEENT: Pupils are round and equally reacting to light. EOMI. No scleral icterus. No conjunctival pallor. Normocephalic, atraumatic. No pharyngeal erythema. No thyromegaly. CARDIOVASCULAR: S1 and S2 present. No murmurs, rubs, or gallops. PULMONARY: Chest is clear to auscultation, no wheezing or crackles. ABDOMEN: Soft, nontender, nondistended, normoactive bowel sounds. No palpable organomegaly. Peritoneal dialysis catheter site is clear MUSCULOSKELETAL: No joint swelling or deformity. EXTREMITIES: No cyanosis, clubbing, or pedal edema. NEUROLOGICAL: Gross neurological examination did not reveal any focal deficits. SKIN: No rashes. Assessment and plan -Gram-positive bacteremia awaiting organism identification and sensitivities. A she is on vancomycin intraperitoneally as well as IV because of the bacteremia. Source being peritoneal dialysis catheter. Blood cultures. -End-stage peritoneal dialysis continued peritoneal dialysis for now -Hypertension resumed on home medications DVT prophylaxis: Ambulation Objective - Vital Signs Vital signs: Vital Signs Temp 98.2 F 02/06/23 07:07 Pulse 80 02/06/23 07:07 Resp 18 02/06/23 07:07 BP 156/81 02/06/23 07:07 Pulse Ox 99 02/06/23 07:07 FiO2 Intake & Output 02/05/23 02/06/23 02/06/23 18:59 06:59 18:59 Other: Voiding Method CAPD CAPD # Voids 2 2 - Labs CBC & Chem 7: 02/04/23 17:00 02/05/23 05:47 Labs: Microbiology - Last 24 Hours (Table) 02/05/23 01:08 Gram Stain - Preliminary Dialysate Body Fluid Culture - Preliminary 02/04/23 17:00 Blood Culture - Preliminary Blood 02/04/23 17:00 Blood Culture - Preliminary Blood
--- NOTE | 2023-02-06 11:35 | P.PN ---
Subjective Patient is seen for follow-up for end-stage renal disease. She is maintained on peritoneal dialysis. Currently being treated for PD peritonitis which initially showed gram-positive organisms and patient is status post IP vancomycin. She is scheduled to receive her third dose today. Patient is also maintained on IV vancomycin as blood cultures were positive for gram-positive bacilli. Patient is being followed by ID. PD fluid cell count had been less than 20. The cell count from yesterday showed WBC 69. Fluid is clear. Patient has no symptoms. Abdomen is soft nontender. She is tolerating oral intake. Blood culture and dialysis fluid culture are negative thus far. Objective - Vital Signs Vital signs: Vital Signs Temp 98.2 F 02/06/23 07:07 Pulse 80 02/06/23 07:07 Resp 18 02/06/23 07:07 BP 156/81 02/06/23 07:07 Pulse Ox 99 02/06/23 07:07 FiO2 Intake & Output 02/05/23 02/06/23 02/06/23 18:59 06:59 18:59 Other: Voiding Method CAPD CAPD # Voids 2 2 - Exam Patient is awake, comfortable, no acute distress Alert oriented 3 Examination of the heart S1 and S2 Examination of the lungs shows bilateral breath sounds are heard Examination of lower extremity shows no evidence of edema CONSTRUCTION PROJECT COORDINATOR exam grossly intact - Labs CBC & Chem 7: 02/04/23 17:00 02/05/23 05:47 Labs: Microbiology - Last 24 Hours (Table) 02/05/23 01:08 Gram Stain - Preliminary Dialysate Body Fluid Culture - Preliminary 02/04/23 17:00 Blood Culture - Preliminary Blood 02/04/23 17:00 Blood Culture - Preliminary Blood Assessment and Plan Assessment: 1. End-stage renal disease maintained on peritoneal dialysis. Changes increased to every 4 hours due to significantly elevated BUN/creatinine. 2. PD associated peritonitis in November 2022 with culture positive for gram-positive and completed intraperitoneal antibiotics with cell count less than 20. Again developed gram-positive peritonitis and is currently being treated with intraperitoneal vancomycin. 3. Gram-positive bacteremia on blood cultures done 02/02/2023 at [facility] - dialysate neutrophil cell count was less than 20 from 02/02/2023. No evidence of exit site infection. No acute changes on CAT scan of the abdomen and pelvis. ? Secondary peritoneal seeding. 4. Hypertension with chronic kidney disease. 5. Chronic kidney disease mineral bone disease maintained on calcitriol. Plan: Patient can go home after intraperitoneal vancomycin today. She needs to follow -up as outpatient with the PD clinic.
--- NOTE | 2023-02-06 11:39 | P.DS ---
Providers Date of admission: 02/05/23 13:26 Attending physician: Sarah Sharma Consults: 02/04/23 19:50 Consult Physician Urgent Consulting Provider: Edson Mckeon Consult Reason/Comments: peritonitis Do you want consulting provider notified?: Yes, Notify in am 02/05/23 05:02 Consult Physician Urgent Consulting Provider: Checo Leos Consult Reason/Comments: peritonitis?? Do you want consulting provider notified?: Yes Primary care physician: [facility] Course: Patient is a pleasant that 37-year-old female with end-stage renal disease on peritoneal dialysis was seen at [facility] for peritonitis with gram- positive organisms unknown whether it's gram-positive bacilli are cocci, for the second time and presently blood cultures also positive organisms patient is presently on vancomycin and he has to struggle review the culture reports from [facility] patient was evaluated by infectious disease repeat cultures are being obtained. She doesn't have any fever or leukocytosis at this time. Patient wasn't dialysate is clear 02/06/2023 Patient's blood cultures showed basilar sunglasses which is a contamination from the hospital patient artery will not require any IV antibiotics. 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 PHYSICAL EXAMINATION: GENERAL: The patient is alert and oriented x3, not in any acute distress. Well developed, well nourished. HEENT: Pupils are round and equally reacting to light. EOMI. No scleral icterus. No conjunctival pallor. Normocephalic, atraumatic. No pharyngeal erythema. No thyromegaly. CARDIOVASCULAR: S1 and S2 present. No murmurs, rubs, or gallops. PULMONARY: Chest is clear to auscultation, no wheezing or crackles. ABDOMEN: Soft, nontender, nondistended, normoactive bowel sounds. No palpable organomegaly. Assessment catheter site doesn't appear to be infected MUSCULOSKELETAL: No joint swelling or deformity. EXTREMITIES: No cyanosis, clubbing, or pedal edema. NEUROLOGICAL: Gross neurological examination did not reveal any focal deficits. SKIN: No rashes. Assessment and plan -Gram-positive bacteremia which is bacillus anthracis and is a contamination will not require any IV antibiotics patient although will require intraoperative male antibiotics for peritonitis -End-stage peritoneal dialysis continued peritoneal dialysis for now -Hypertension Patient Condition at Discharge: Stable Plan - Discharge Summary Discharge Rx Participant: No New Discharge Prescriptions: No Action Sodium Bicarbonate Tab 650 mg PO DAILY@1330 Magnesium Oxide [Mag-Ox] 400 mg PO W/SUPPER Furosemide [Lasix] 40 mg PO DIRECTED calcitrioL [Calcitriol] 0.25 mcg PO HS Levothyroxine Sodium [Synthroid] 50 mcg PO DAILY Ezetimibe [Zetia] 10 mg PO HS Losartan Potassium 50 mg PO DAILY@1330 Famotidine [Pepcid] 20 mg PO BID PRN PRN Reason: Gi Upset Atorvastatin [Lipitor] 20 mg PO HS Discharge Medication List Furosemide [Lasix] 40 mg PO DIRECTED 06/05/21 [History] calcitrioL [Calcitriol] 0.25 mcg PO HS 06/05/21 [History] Atorvastatin [Lipitor] 20 mg PO HS 02/04/23 [History] Ezetimibe [Zetia] 10 mg PO HS 02/04/23 [History] Famotidine [Pepcid] 20 mg PO BID PRN 02/04/23 [History] Levothyroxine Sodium [Synthroid] 50 mcg PO DAILY 02/04/23 [History] Losartan Potassium 50 mg PO DAILY@1330 02/04/23 [History] Magnesium Oxide [Mag-Ox] 400 mg PO W/SUPPER 02/04/23 [History] Sodium Bicarbonate Tab 650 mg PO DAILY@1330 02/04/23 [History] Follow up Appointment(s)/Referral(s): Tegan Hayden MD [Primary Care Provider] - 1-2 days
[2023-02-06] MEDS ORDERED: DIALYSIS (PERIT 1.5%) 2,000 ML 30 G/2,000 ML BAG INTRAPERIT SCH ×2 (12:00→16:00)
[2023-02-06] MEDS ORDERED: DIALYSIS (PERIT 1.5%) 2,000 ML 30 G/2,000 ML BAG INTRAPERIT ONE (12:00)
== END 2023-02-06 13:49 | disposition home or self-care (01) | DRG 867 ==
LOC: EC 14:40 → 6NMEDSUR 19:50 → 4SSUR 02-05 02:32 → OBSVTOIN 02-05 13:26
PROVIDERS: ADMIT Hospitalist; ATTEND Hospitalist
DX: T80.29XA Infection following other infusion, transfusion and therapeutic injection, initial encounter (principal); K65.9 Peritonitis, unspecified; N18.6 End stage renal disease; I12.0 Hypertensive chronic kidney disease with stage 5 chronic kidney disease or end stage renal disease; R78.81 Bacteremia; Y84.1 Kidney dialysis as the cause of abnormal reaction of the patient, or of later complication, without mention of misadventure at the time of the procedure; E83.9 Disorder of mineral metabolism, unspecified; Z79.899 Other long term (current) drug therapy; Z79.890 Hormone replacement therapy; Z99.2 Dependence on renal dialysis; Z28.310 Unvaccinated for COVID-19; Z28.21 Immunization not carried out because of patient refusal
CPT/HCPCS: 36415; 74176; 80048; 80053; 83605; 83735; 85025; 87040; 87070; 87205; 89050; 96361; 96365; 96366; 96367; 99285

== ENCOUNTER 2023-03-22 15:16 | Inpatient (IN) | payer BC ==
--- NOTE | 2023-03-22 15:24 | ED ---
General Adult HPI - General Source: patient, RN notes reviewed Mode of arrival: ambulatory Limitations: no limitations <Bel Chandler - Last Filed: 03/22/23 15:24> <Baljit Strong - Last Filed: 03/22/23 21:21> - General Chief complaint: Recheck/Abnormal Lab/Rx Stated complaint: Infection Time Seen by Provider: 03/22/23 15:23 - History of Present Illness Initial comments: This is a 37 year old female who presents to the emergency department for peritonitis. Patient has end-stage renal disease on peritoneal dialysis. She's been dealing with peritonitis for the last couple of months and has been on multiple rounds of antibiotics. States that the infection continues to persist, and she was sent in by Dr. Mckeon, nephrology, for admission. (Bel Chandler) 37-year-old female on peritoneal dialysis presenting to the ED with concerns of peritonitis. Patient notes that she drains her dialysate on a daily basis. States a few days ago noticed that this was cloudy. States that a culture was performed and reportedly notes that this was positive. Patient notes a history of this and has been on multiple rounds of antibiotics for this. States that she was advised to present to the ED by Dr. Mckeon for admission. At this time, patient denies fever or chills. Denies abdominal pain nausea vomiting or diarrhea. Patient states otherwise she is not having any symptoms and would not have known to present to the ED for further evaluation. No other complaints. (Baljit Strong) - Related Data Home Medications Medication Instructions Recorded Confirmed Furosemide [Lasix] 40 mg PO DIRECTED 06/05/21 02/04/23 calcitrioL 0.25 mcg PO HS 06/05/21 02/04/23 Atorvastatin [Lipitor] 20 mg PO HS 02/04/23 02/04/23 Ezetimibe [Zetia] 10 mg PO HS 02/04/23 02/04/23 Famotidine [Pepcid] 20 mg PO BID PRN 02/04/23 02/04/23 Levothyroxine Sodium [Synthroid] 50 mcg PO DAILY 02/04/23 02/04/23 Losartan Potassium 50 mg PO DAILY@1330 02/04/23 02/04/23 Magnesium Oxide [Mag-Ox] 400 mg PO W/SUPPER 02/04/23 02/04/23 Sodium Bicarbonate Tab 650 mg PO DAILY@1330 02/04/23 02/04/23 Allergies Allergy/AdvReac Type Severity Reaction Status Date / Time No Known Allergies Allergy Verified 03/22/23 16:12 Review of Systems ROS Other: All systems not noted in ROS Statement are negative. <Bel Chandler - Last Filed: 03/22/23 15:24> ROS Other: All systems not noted in ROS Statement are negative. <Baljit Strong - Last Filed: 03/22/23 21:21> ROS Statement: Those systems with pertinent positive or pertinent negative responses have been documented in the HPI. Past Medical History Past Medical History: Hypertension, Renal Disease Additional Past Medical History / Comment(s): end stage kidney failure, dialysis History of Any Multi-Drug Resistant Organisms: None Reported Past Surgical History: No Surgical Hx Reported Additional Past Surgical History / Comment(s): dilaysis cath Past Anesthesia/Blood Transfusion Reactions: No Reported Reaction Past Psychological History: No Psychological Hx Reported Smoking Status: Never smoker Past Alcohol Use History: None Reported Past Drug Use History: None Reported <Bel Chandler - Last Filed: 03/22/23 15:24> General Exam <Bel Chandler - Last Filed: 03/22/23 15:24> General appearance: alert, in no apparent distress Eye exam: Present: normal appearance Neck exam: Present: normal inspection Respiratory exam: Present: normal lung sounds bilaterally Cardiovascular Exam: Present: regular rate, normal rhythm GI/Abdominal exam: Present: soft (No tenderness to palpation. No rebound guarding or rigidity.) Neurological exam: Present: alert, oriented X3 Skin exam: Present: warm, dry <Baljit Strong - Last Filed: 03/22/23 21:21> - General Exam Comments Initial Comments: Visual Physical Exam Vital signs reviewed General: Well-appearing, nontoxic, no acute distress. Head: Normocephalic, atraumatic Eyes: PERRLA, EOMI ENT: Airway patent Chest: Nonlabored breathing Skin: No visual rash, normal skin tone Neuro: Alert and oriented 3 Musculoskeletal: No gross abnormalities (Bel Chandler) Course Vital Signs 03/22/23 03/22/23 16:09 19:39 Temperature 98.4 F 98.0 F Pulse Rate 70 67 Respiratory 20 18 Rate Blood Pressure 143/80 157/93 O2 Sat by Pulse 100 100 Oximetry Medical Decision Making <Bel Chandler - Last Filed: 03/22/23 15:24> - Lab Data Result diagrams: 03/22/23 19:30 03/22/23 19:30 <Baljit Strong - Last Filed: 03/22/23 21:21> - Medical Decision Making I performed the QuickNote portion of this chart. Signed Bel Chandler PA-C. (Bel Chandler) Was pt. sent in by a medical professional or institution ([facility] She[facility]on, CLIENT SERVICES MANAGER, urgent care, hospital, or group home...) When possible be specific @ -Dr. Mckeon. Did you speak to anyone other than the patient for history (EMS, parent, family, police, friend...)? What history was obtained from this source @ -No Did you review nursing and triage notes (agree or disagree)? Why? @ -I reviewed and agree with nursing and triage notes Were old charts reviewed (outside hosp., previous admission, EMS record, old EKG, old radiological studies, urgent care reports/EKG's, group home records)? Report findings @ -Prior chart reviewed showing history of peritonitis. Differential Diagnosis (chest pain, altered mental status, abdominal pain women, abdominal pain men, vaginal bleeding, weakness, fever, dyspnea, syncope, headache, dizziness, GI bleed, back pain, seizure, CVA, palpatations, mental health, musculoskeletal)? @ -Differential Fever: Pneumonia, viral URI, endocarditis, myocarditis, pericarditis, otitis, sinusitis, peritonsillar Abscess, retropharyngeal Abscess, epiglottitis, peritonitis, appendicitis, Jodi cystitis, diverticulitis, hepatitis, colitis, UTI, PID, TOA, pyelonephritis, prostatitis, epididymitis, meningitis, encepha litis, pulmonary embolism, CVA, thyroid storm, pancreatitis, adrenal crisis, cavernous sinus thrombosis, this is not meant to be an all-inclusive list. EKG interpreted by me (3pts min.). @ -None X-rays interpreted by me (1pt min.). @ -None done CT interpreted by me (1pt min.). @ -None done U/S interpreted by me (1pt. min.). @ -None done What testing was considered but not performed or refused? (CT, X-rays, U/S, labs)? Why? @ -None What meds were considered but not given or refused? Why? @ -None Did you discuss the management of the patient with other professionals (professionals i.e. Dr., PA, CLIENT SERVICES MANAGER, lab, RT, psych nurse, case management social worker, seed specialist, teacher, finance officer, employment case manager)? Give summary @ -Case discussed with Dr. Mckeon, who advises starting the patient on vancomycin, admission, and consults to Dr. Durham of vascular surgery, Dr. Gordillo of general surgery, and Dr. Leos of vascular surgery secondary to peritonitis and transition to hemodialysis. Case discussed with Dr. Morel, who accepts admission Was smoking cessation discussed for >3mins.? @ -No Was critical care preformed (if so, how long)? @ -No Were there social determinants of health that impacted care today? How? (Homelessness, low income, unemployed, alcoholism, drug addiction, transportation, low edu. Level, literacy, decrease access to med. care, fpc, rehab)? @ -No Was there de-escalation of care discussed even if they declined (Discuss DNR or withdrawal of care, Hospice)? DNR status @ -No What co-morbidities impacted this encounter? (DM, HTN, Smoking, COPD, CAD, Cancer, CVA, ARF, Chemo, Hep., AIDS, mental health diagnosis, sleep apnea, morbid obesity)? @ -End-stage renal disease Was patient admitted / discharged? Hospital course, mention meds given and route, prescriptions, significant lab abnormalities, going to OR and other pertinent info. @ -Admission 37-year-old female presenting to the ED as instructed by Dr. East secondary to positive cultures of her peritoneal fluid. Patient will be admitted with c onsults as above. Vancomycin initiated in the ED. At this time vital signs stable afebrile. Laboratory studies at this time reviewed. CBC unremarkable with no elevation of white blood cell count. Chemistry panel shows no electrolyte derangements however poor kidney function at baseline. Plan of care discussed with patient who is in agreement. Undiagnosed new problem with uncertain prognosis? @ -No Drug Therapy requiring intensive monitoring for toxicity (Heparin, Nitro, Insuli n, Cardizem)? @ -No Were any procedures done? @ -No Diagnosis/symptom? @ -Peritonitis with positive culture Acute, or Chronic, or Acute on Chronic? @ -Acute Uncomplicated (without systemic symptoms) or Complicated (systemic symptoms)? @ -Complicated Side effects of treatment? @ -No Exacerbation, Progression, or Severe Exacerbation? @ -No Poses a threat to life or bodily function? How? (Chest pain, [place], HI, pneumonia, PE, COPD, DKA, ARF, appy, cholecystitis, CVA, Diverticulitis, Homicidal, Suicidal, threat to staff... and all critical care pts) @ -Possibly (Baljit Strong) - Lab Data Lab Results 03/22/23 03/22/23 03/22/23 Range/Units 19:30 19:30 19:30 WBC 9.2 (3.8-10.6) k/uL RBC 3.63 L (3.80-5.40) m/uL Hgb 12.1 (11.4-16.0) gm/dL Hct 34.0 (34.0-46.0) % MCV 93.7 (80.0-100.0) fL MCH 33.3 (25.0-35.0) pg MCHC 35.5 (31.0-37.0) g/dL RDW 13.2 (11.5-15.5) % Plt Count 259 (150-450) k/uL MPV 8.0 Neutrophils % 72 % Lymphocytes % 18 % Monocytes % 6 % Eosinophils % 2 % Basophils % 0 % Neutrophils # 6.6 (1.3-7.7) k/uL Lymphocytes # 1.7 (1.0-4.8) k/uL Monocytes # 0.6 (0-1.0) k/uL Eosinophils # 0.2 (0-0.7) k/uL Basophils # 0.0 (0-0.2) k/uL Sodium 136 L (137-145) mmol/L Potassium 3.7 (3.5-5.1) mmol/L Chloride 100 (98-107) mmol/L Carbon Dioxide 24 (22-30) mmol/L Anion Gap 12 mmol/L BUN 67 H (7-17) mg/dL Creatinine 6.92 H (0.52-1.04) mg/dL Est GFR (CKD-EPI)AfAm 8 (>60 ml/min/1.73 sqM) Est GFR (CKD-EPI)NonAf 7 (>60 ml/min/1.73 sqM) Glucose 93 (74-99) mg/dL Plasma Lactic Acid Francesco 0.8 (0.7-2.0) mmol/L Calcium 9.5 (8.4-10.2) mg/dL Total Bilirubin 0.3 (0.2-1.3) mg/dL AST 30 (14-36) U/L ALT 29 (4-34) U/L Alkaline Phosphatase 113 (38-126) U/L C-Reactive Protein 0.8 (<1.0) mg/dL Total Protein 7.3 (6.3-8.2) g/dL Albumin 4.6 (3.5-5.0) g/dL Disposition <Bel Chandler - Last Filed: 03/22/23 15:24> Time of Disposition: 21:21 <Baljit Strong - Last Filed: 03/22/23 21:21> Clinical Impression: Peritonitis Disposition: ADMITTED IP TO THIS HOSP Condition: Good Referrals: Tegan Hayden MD [Primary Care Provider] - 1-2 days
[2023-03-22 19:52] LABS: Basophils % (A) 0 %; Eosinophils # (A) 0.2 k/uL (0-0.7); Eosinophils % (A) 2 %; HGB 12.1 gm/dL (11.4-16.0); Lymphocytes # (A) 1.7 k/uL (1.0-4.8); Lymphocytes % (A) 18 %; MCH 33.3 pg (25.0-35.0); MCHC 35.5 g/dL (31.0-37.0); MCV 93.7 fL (80.0-100.0); Monocytes # (A) 0.6 k/uL (0-1.0); Monocytes % (A) 6 %; Neutrophils # (A) 6.6 k/uL (1.3-7.7); Neutrophils % (A) 72 %; Platelet Count 259 k/uL (150-450); RBC 3.63 m/uL (3.80-5.40); RDW 13.2 % (11.5-15.5); WBC 9.2 k/uL (3.8-10.6)
[2023-03-22 20:02] LABS: ALT 29 U/L (4-34); AST 30 U/L (14-36); African American GFR (CKD) 8 (>60 ml/min/1.73 sqM); Albumin 4.6 g/dL (3.5-5.0); Alkaline Phosphatase 113 U/L (38-126); Anion Gap 12 mmol/L; Blood Urea Nitrogen 67 mg/dL (7-17); C Reactive Protein 0.8 mg/dL (<1.0); Calcium 9.5 mg/dL (8.4-10.2); Carbon Dioxide 24 mmol/L (22-30); Chloride 100 mmol/L (98-107); Glucose 93 mg/dL (74-99); Non-African American GFR(CKD) 7 (>60 ml/min/1.73 sqM); Potassium 3.7 mmol/L (3.5-5.1); Sodium 136 mmol/L (137-145); Total Bilirubin 0.3 mg/dL (0.2-1.3); Total Protein 7.3 g/dL (6.3-8.2)
[2023-03-22] MEDS ORDERED: NALOXONE 0.4 MG/ML 1 ML VIAL IV PRN (21:21)
[2023-03-22] MEDS ORDERED: VANCOMYCIN IV PER PHARMACY 1 EACH MISC MISCELLANE PRN (21:36)
[2023-03-22] MEDS ORDERED: ACETAMINOPHEN TAB 325 MG TAB PO PRN (21:37)
[2023-03-22] MEDS ORDERED: HYDROmorphone 1 MG/ML 1 ML SYRINGE IVP PRN (21:37)
[2023-03-22] MEDS ORDERED: VANCOMYCIN 1,000 MG in SODIUM CHLORIDE 0.9% 250 ML IVPB ONE (22:00)
[2023-03-22] MEDS: SODIUM CHLORIDE 0.9% 1,000 ML IV SCH (22:35)
[2023-03-23 03:32] LABS: Erythrocyte Sedimentation Rate 32 mm/Hr (0-20)
[2023-03-23 08:29] LABS: Basophils % (A) 0 %; Eosinophils # (A) 0.1 k/uL (0-0.7); Eosinophils % (A) 2 %; HCT 34.2 % (34.0-46.0); HGB 11.7 gm/dL (11.4-16.0); Lymphocytes # (A) 1.2 k/uL (1.0-4.8); Lymphocytes % (A) 21 %; MCH 32.9 pg (25.0-35.0); MCHC 34.3 g/dL (31.0-37.0); MCV 96.2 fL (80.0-100.0); Mean Platelet Volume 7.6; Monocytes # (A) 0.4 k/uL (0-1.0); Monocytes % (A) 7 %; Neutrophils % (A) 68 %; Platelet Count 227 k/uL (150-450); RBC 3.56 m/uL (3.80-5.40); RDW 12.9 % (11.5-15.5); WBC 5.8 k/uL (3.8-10.6)
[2023-03-23 08:48] LABS: ALT 23 U/L (4-34); AST 24 U/L (14-36); African American GFR (CKD) 7 (>60 ml/min/1.73 sqM); Albumin 3.6 g/dL (3.5-5.0); Alkaline Phosphatase 97 U/L (38-126); Anion Gap 10 mmol/L; Blood Urea Nitrogen 64 mg/dL (7-17); Calcium 9.1 mg/dL (8.4-10.2); Carbon Dioxide 20 mmol/L (22-30); Chloride 106 mmol/L (98-107); Glucose 91 mg/dL (74-99); Non-African American GFR(CKD) 6 (>60 ml/min/1.73 sqM); Potassium 3.9 mmol/L (3.5-5.1); Sodium 136 mmol/L (137-145); Total Bilirubin 0.3 mg/dL (0.2-1.3); Total Protein 6.1 g/dL (6.3-8.2)
[2023-03-23] MEDS ORDERED: ONDANSETRON 4 MG/2 ML VIAL IVP PRN (10:11)
--- NOTE | 2023-03-23 11:30 | P.NPCON ---
History of Present Illness - Reason for Consult end stage renal disease - History of Present Illness Reason for consultation: End-stage renal disease History of present illness: Patient is a 37-year-old female seen in renal consultation for end-stage renal disease. She is maintained on peritoneal dialysis. Patient was sent to the hospital due to recurrent peritonitis. Patient has been treated for gram- positive peritonitis twice with intraperitoneal vancomycin and also received rifampin the second time she had it. Patient denies any cloudy dialysate. Patient's cell count does resolve with intraperitoneal antibiotics however when cultures are repeated it comes back positive for gram-positive cocci. Patient is scheduled to have PD catheter removed and will be transition to hemodialysis for the time being. She denies chest pain or shortness of breath. No vomiting or diarrhea. No fever or chills. Vital signs are stable. General: No acute distress. HEENT: Head exam is unremarkable. LUNGS: No audible rhonchi or wheezes. HEART: Rate and Rhythm are regular. ABDOMEN: Nontender. EXTREMITITES: No edema. Past Medical History Past Medical History: Hypertension, Renal Disease Additional Past Medical History / Comment(s): end stage kidney failure, dialysis History of Any Multi-Drug Resistant Organisms: None Reported Past Surgical History: No Surgical Hx Reported Additional Past Surgical History / Comment(s): dilaysis cath Past Anesthesia/Blood Transfusion Reactions: No Reported Reaction Past Psychological History: No Psychological Hx Reported Smoking Status: Never smoker Past Alcohol Use History: None Reported Past Drug Use History: None Reported Medications and Allergies Home Medications Medication Instructions Recorded Confirmed Type Furosemide [Lasix] 40 mg PO DIRECTED 06/05/21 03/22/23 History calcitrioL 0.25 mcg PO HS 06/05/21 03/22/23 History Atorvastatin [Lipitor] 20 mg PO HS 02/04/23 03/22/23 History Ezetimibe [Zetia] 10 mg PO HS 02/04/23 03/22/23 History Levothyroxine Sodium [Synthroid] 50 mcg PO DAILY 02/04/23 03/22/23 History Losartan Potassium 50 mg PO DAILY@1330 02/04/23 03/22/23 History Magnesium Oxide [Mag-Ox] 400 mg PO W/SUPPER 02/04/23 03/22/23 History Sodium Bicarbonate Tab 650 mg PO DAILY@1330 02/04/23 03/22/23 History Folic Acid/Vit B Complex and C 0.8 mg PO DAILY 03/22/23 03/22/23 History [Nephro-Graciela Tablet] allopurinoL [Zyloprim] 100 mg PO DAILY 03/22/23 03/22/23 History Allergies Allergy/AdvReac Type Severity Reaction Status Date / Time No Known Allergies Allergy Verified 03/22/23 22:09 Physical Exam Vitals: Vital Signs Temp Pulse Resp BP Pulse Ox 03/23/23 06:15 98.2 F 86 17 133/84 100 03/23/23 04:24 93 17 123/72 99 03/23/23 02:19 99 17 03/23/23 00:43 66 18 134/77 98 03/22/23 22:30 57 L 18 149/82 100 03/22/23 19:39 98.0 F 67 18 157/93 100 03/22/23 16:09 98.4 F 70 20 143/80 100 Intake and Output 03/22/23 03/23/23 03/23/23 22:59 06:59 14:59 Other: Weight 58.967 kg Results - Lab Results Most recent lab results Calcium 9.1 mg/dL (8.4-10.2) 03/23/23 07:21 03/23/23 07:21 03/23/23 07:21 Assessment and Plan Plan: Assessment: 1. End-stage renal disease maintained on peritoneal dialysis. 2. Recurrent peritonitis with gram-positive cocci. PD catheter to be removed. Permacath will be placed for hemodialysis. 3. Chronic kidney disease mineral bone disease maintained on calcitriol. 4. Hypertension with chronic kidney disease. Stable. Plan: PD catheter to be removed tomorrow. Discussed with surgery. Permacath placement by vascular surgery pending. Plan for hemodialysis tomorrow. IV antibiotics per ID. Thank you for the consultation. I will continue to follow the patient with you during her hospital stay.
--- NOTE | 2023-03-23 11:49 | P.GSCN ---
History of Present Illness Consult date: 03/23/23 History of present illness: CHIEF COMPLAINT: Peritonitis HISTORY OF PRESENT ILLNESS: This is a 37-year-old female with a history of end- stage renal disease on peritoneal dialysis. Peritoneal dialysis catheter was placed in May 2021. Patient has had recurrent episodes of peritonitis requiring antibiotics. Nephrology is recommended the patient be admitted to the hospital and that the peritoneal dialysis catheter be removed. And patient transition to hemodialysis for period of time. Patient denies any fever chills or sweats. Patient denies any abdominal pain. Denies any nausea or vomiting. PAST MEDICAL HISTORY: See below PAST SURGICAL HISTORY: See below MEDICATIONS: See below ALLERGIES: See below SOCIAL HISTORY: No illicit drug use. REVIEW OF SYSTEMS: CONSTITUTIONAL: Denies fever or chills. HEENT: Denies blurred vision, vision changes, or eye pain. Denies hemoptysis CARDIOVASCULAR: Denies chest pain or pressure. RESPIRATORY: No shortness of breath. GASTROINTESTINAL: See HPI for pertinent findings HEMATOLOGIC: Denies bleeding disorders. GENITOURINARY: Denies any blood in urine or increased urinary frequency. SKIN: Denies pruitis. Denies rash. PHYSICAL EXAM: VITAL SIGNS: Reviewed GENERAL: Well-developed in no acute distress. HEENT: No sclera icterus. Extraocular movements grossly intact. Moist buccal mucosa. Head is atraumatic, normocephalic. No nasal drainage. ABDOMEN: Soft. Nondistended. Nontender. Peritoneal dialysis catheter intact. No erythema or redness noted. NEUROLOGIC: Alert and oriented. Cranial nerves II through XII grossly intact. LABORATORY DATA: WBC 5.8 Hgb 11.7 platelets 227 Sodium is 136 potassium 3.9 creatinine 7.31 IMAGING: ASSESSMENT: 1. Recurrent peritonitis 2. End-stage renal disease with peritoneal dialysis PLAN: -Patient scheduled for peritoneal dialysis catheter removal tomorrow, 03/24/[address] Gordillo -Keep patient n.p.o. after midnight -Antibiotics per ID service Physician Gamer note has been reviewed by physician. Signing provider agrees with the documented findings, assessment, and plan of care. I have personally seen and examined the patient, reviewed the SUPERVISORY CBP OFFICER /PAs history, exam and MDM and agree with the assessment and plan as written. Based on total visit time, I have performed more than 50% of the visit. As above: Spoke with nephrology. Patient with recurrent gram-positive peritonitis. Suspect seeding of the catheter itself. Will plan catheter r emoval tomorrow. Past Medical History Past Medical History: Hypertension, Renal Disease Additional Past Medical History / Comment(s): end stage kidney failure, dialysis History of Any Multi-Drug Resistant Organisms: None Reported Past Surgical History: No Surgical Hx Reported Additional Past Surgical History / Comment(s): dilaysis cath Past Anesthesia/Blood Transfusion Reactions: No Reported Reaction Past Psychological History: No Psychological Hx Reported Smoking Status: Never smoker Past Alcohol Use History: None Reported Past Drug Use History: None Reported Medications and Allergies Home Medications Medication Instructions Recorded Confirmed Type Furosemide [Lasix] 40 mg PO DIRECTED 06/05/21 03/22/23 History calcitrioL 0.25 mcg PO HS 06/05/21 03/22/23 History Atorvastatin [Lipitor] 20 mg PO HS 02/04/23 03/22/23 History Ezetimibe [Zetia] 10 mg PO HS 02/04/23 03/22/23 History Levothyroxine Sodium [Synthroid] 50 mcg PO DAILY 02/04/23 03/22/23 History Losartan Potassium 50 mg PO DAILY@1330 02/04/23 03/22/23 History Magnesium Oxide [Mag-Ox] 400 mg PO W/SUPPER 02/04/23 03/22/23 History Sodium Bicarbonate Tab 650 mg PO DAILY@1330 02/04/23 03/22/23 History Folic Acid/Vit B Complex and C 0.8 mg PO DAILY 03/22/23 03/22/23 History [Nephro-Graciela Tablet] allopurinoL [Zyloprim] 100 mg PO DAILY 03/22/23 03/22/23 History Allergies Allergy/AdvReac Type Severity Reaction Status Date / Time No Known Allergies Allergy Verified 03/22/23 22:09 Surgical - Exam Vital Signs Temp Pulse Resp BP Pulse Ox 98.4 F 70 20 143/80 100 03/22/23 16:09 03/22/23 16:09 03/22/23 16:09 03/22/23 16:09 03/22/23 16:09 Results - Labs 03/23/23 07:21 03/23/23 07:21 Abnormal Lab Results - Last 24 Hours (Table) 03/22/23 03/22/23 03/23/23 Range/Units 19:30 19:30 07:21 RBC 3.63 L 3.56 L (3.80-5.40) m/uL ESR 32 H (0-20) mm/Hr Sodium 136 L (137-145) mmol/L Carbon Dioxide (22-30) mmol/L BUN 67 H (7-17) mg/dL Creatinine 6.92 H (0.52-1.04) mg/dL Total Protein (6.3-8.2) g/dL 03/23/23 Range/Units 07:21 RBC (3.80-5.40) m/uL ESR (0-20) mm/Hr Sodium 136 L (137-145) mmol/L Carbon Dioxide 20 L (22-30) mmol/L BUN 64 H (7-17) mg/dL Creatinine 7.31 H* (0.52-1.04) mg/dL Total Protein 6.1 L (6.3-8.2) g/dL Diabetes panel 03/22/23 03/23/23 Range/Units 19:30 07:21 Sodium 136 L 136 L (137-145) mmol/L Potassium 3.7 3.9 (3.5-5.1) mmol/L Chloride 100 106 (98-107) mmol/L Carbon Dioxide 24 20 L (22-30) mmol/L BUN 67 H 64 H (7-17) mg/dL Creatinine 6.92 H 7.31 H* (0.52-1.04) mg/dL Glucose 93 91 (74-99) mg/dL Calcium 9.5 9.1 (8.4-10.2) mg/dL AST 30 24 (14-36) U/L ALT 29 23 (4-34) U/L Alkaline Phosphatase 113 97 (38-126) U/L Total Protein 7.3 6.1 L (6.3-8.2) g/dL Albumin 4.6 3.6 (3.5-5.0) g/dL Calcium panel 03/22/23 03/23/23 Range/Units 19:30 07:21 Calcium 9.5 9.1 (8.4-10.2) mg/dL Albumin 4.6 3.6 (3.5-5.0) g/dL Pituitary panel 03/22/23 03/23/23 Range/Units 19:30 07:21 Sodium 136 L 136 L (137-145) mmol/L Potassium 3.7 3.9 (3.5-5.1) mmol/L Chloride 100 106 (98-107) mmol/L Carbon Dioxide 24 20 L (22-30) mmol/L BUN 67 H 64 H (7-17) mg/dL Creatinine 6.92 H 7.31 H* (0.52-1.04) mg/dL Glucose 93 91 (74-99) mg/dL Calcium 9.5 9.1 (8.4-10.2) mg/dL Adrenal panel 03/22/23 03/23/23 Range/Units 19:30 07:21 Sodium 136 L 136 L (137-145) mmol/L Potassium 3.7 3.9 (3.5-5.1) mmol/L Chloride 100 106 (98-107) mmol/L Carbon Dioxide 24 20 L (22-30) mmol/L BUN 67 H 64 H (7-17) mg/dL Creatinine 6.92 H 7.31 H* (0.52-1.04) mg/dL Glucose 93 91 (74-99) mg/dL Calcium 9.5 9.1 (8.4-10.2) mg/dL Total Bilirubin 0.3 0.3 (0.2-1.3) mg/dL AST 30 24 (14-36) U/L ALT 29 23 (4-34) U/L Alkaline Phosphatase 113 97 (38-126) U/L Total Protein 7.3 6.1 L (6.3-8.2) g/dL Albumin 4.6 3.6 (3.5-5.0) g/dL
--- NOTE | 2023-03-23 12:32 | P.HPIM ---
History of Present Illness H&P Date: 03/23/23 Chief Complaint: Peritonitis * 37-year-old patient with past medical history significant for end-stage renal disease on hemodialysis, peritoneal dialysis who has been dealing with infected peritoneal fluid and has been treated with IV antibiotics, previously seen by infectious disease presents to the emergency department with complaints of peritoneal fluid being cloudy, and concern for persistent infection patient has been following up with nephrology, at the time of pres entation she denies fever, chills, abdominal pain, nausea, vomiting, diarrhea. * Workup initiated in ER included WBC which was 9.2 hemoglobin 12.1 platelet count of 259 ESR of 32 * Serum chemistry obtained showed sodium 136 potassium 3.7 BUN 67 creatinine 6.92 liver profile within normal limits CRP 0.8 * Previously patient has been treated with intraperitoneal vancomycin, patient was admitted in January and discharged on 02/06/2023, with plan to continue intraperitoneal vancomycin for PD peritonitis. * Patient admitted to medical floor with consultation obtained from infectious disease, nephrology, vascular surgery REVIEW OF SYSTEMS: Cloudy peritoneal fluid, fatigue malaise CONSTITUTIONAL: Cloudy peritoneal fluid, fatigue malaise HEENT: No recent visual problems or hearing problems. Denied any sore throat. CARDIOVASCULAR: No chest pain, orthopnea, PND, no palpitations, no syncope. PULMONARY: No shortness of breath, no cough, no hemoptysis. GASTROINTESTINAL: No diarrhea, no nausea, no vomiting, no abdominal pain. NEUROLOGICAL: No headaches, no weakness, no numbness. HEMATOLOGICAL: Denies any bleeding or petechiae. GENITOURINARY: Denies any burning micturition, frequency, or urgency. MUSCULOSKELETAL/RHEUMATOLOGICAL: Denies any joint pain, swelling, or any muscle pain. ENDOCRINE: Denies any polyuria or polydipsia. PHYSICAL EXAMINATION: GENERAL: The patient is alert and oriented x3, not in any acute distress. Well developed, well nourished. Pale appearance HEENT: Pupils are round and equally reacting to light. EOMI. No scleral icterus. CARDIOVASCULAR: S1 and S2 present. No murmurs, rubs, or gallops. PULMONARY: Chest is clear to auscultation, no wheezing or crackles. ABDOMEN: Soft, nontender, nondistended, PD cath in place MUSCULOSKELETAL: No joint swelling or deformity. EXTREMITIES: No cyanosis, clubbing, or pedal edema. NEUROLOGICAL: Gross neurological examination did not reveal any focal deficits. SKIN: No rashes. Past Medical History Past Medical History: Hypertension, Renal Disease Additional Past Medical History / Comment(s): end stage kidney failure, dialysis History of Any Multi-Drug Resistant Organisms: None Reported Past Surgical History: No Surgical Hx Reported Additional Past Surgical History / Comment(s): dilaysis cath Past Anesthesia/Blood Transfusion Reactions: No Reported Reaction Past Psychological History: No Psychological Hx Reported Smoking Status: Never smoker Past Alcohol Use History: None Reported Past Drug Use History: None Reported Medications and Allergies Home Medications Medication Instructions Recorded Confirmed Type Furosemide [Lasix] 40 mg PO DIRECTED 06/05/21 03/22/23 History calcitrioL 0.25 mcg PO HS 06/05/21 03/22/23 History Atorvastatin [Lipitor] 20 mg PO HS 02/04/23 03/22/23 History Ezetimibe [Zetia] 10 mg PO HS 02/04/23 03/22/23 History Levothyroxine Sodium [Synthroid] 50 mcg PO DAILY 02/04/23 03/22/23 History Losartan Potassium 50 mg PO DAILY@1330 02/04/23 03/22/23 History Magnesium Oxide [Mag-Ox] 400 mg PO W/SUPPER 02/04/23 03/22/23 History Sodium Bicarbonate Tab 650 mg PO DAILY@1330 02/04/23 03/22/23 History Folic Acid/Vit B Complex and C 0.8 mg PO DAILY 03/22/23 03/22/23 History [Nephro-Graciela Tablet] allopurinoL [Zyloprim] 100 mg PO DAILY 03/22/23 03/22/23 History Allergies Allergy/AdvReac Type Severity Reaction Status Date / Time No Known Allergies Allergy Verified 03/22/23 22:09 Physical Exam Vitals: Vital Signs Temp Pulse Resp BP Pulse Ox 03/23/23 06:15 98.2 F 86 17 133/84 100 03/23/23 04:24 93 17 123/72 99 03/23/23 02:19 99 17 03/23/23 00:43 66 18 134/77 98 03/22/23 22:30 57 L 18 149/82 100 03/22/23 19:39 98.0 F 67 18 157/93 100 03/22/23 16:09 98.4 F 70 20 143/80 100 Intake and Output 03/22/23 03/23/23 03/23/23 22:59 06:59 14:59 Other: Weight 58.967 kg Results CBC & Chem 7: 03/23/23 07:21 03/23/23 07:21 Labs: Abnormal Lab Results - Last 24 Hours (Table) 03/22/23 03/22/23 03/23/23 Range/Units 19:30 19:30 07:21 RBC 3.63 L 3.56 L (3.80-5.40) m/uL ESR 32 H (0-20) mm/Hr Sodium 136 L (137-145) mmol/L Carbon Dioxide (22-30) mmol/L BUN 67 H (7-17) mg/dL Creatinine 6.92 H (0.52-1.04) mg/dL Total Protein (6.3-8.2) g/dL 03/23/23 Range/Units 07:21 RBC (3.80-5.40) m/uL ESR (0-20) mm/Hr Sodium 136 L (137-145) mmol/L Carbon Dioxide 20 L (22-30) mmol/L BUN 64 H (7-17) mg/dL Creatinine 7.31 H* (0.52-1.04) mg/dL Total Protein 6.1 L (6.3-8.2) g/dL Thrombosis Risk Factor Assmnt - DVT/VTE Prophylaxis DVT/VTE Prophylaxis: Mechanical Prophylaxis ordered Assessment and Plan Assessment: Assessment and plan End-stage renal disease on peritoneal dialysis History of recurrent peritonitis associated with peritoneal dialysis History of hypertension Chronic kidney disease, with mineral bone disease * In regards to end-stage renal disease, nephrology consulted, defer dialysis management to nephrology * In regards to history of hypertension, continue losartan * In regards to history of peritonitis associated with PD, continue patient on vancomycin infectious disease consult, vancomycin pharmacy to dose * In regards to mineral bone disease continue patient on calcitriol, folic acid * SCDs for DVT prophylaxis * CODE STATUS is full code *
[2023-03-23] MEDS: LOSARTAN 50 MG TAB PO SCH (14:00)
[2023-03-23] MEDS: SODIUM BICARBONATE TAB 650 MG TAB PO SCH (14:00)
[2023-03-23] MEDS ORDERED: VANCOMYCIN 1,000 MG in SODIUM CHLORIDE 0.9% 250 ML IVPB ONE (16:00)
[2023-03-23] MEDS: MAGNESIUM OXIDE 400 MG TAB PO SCH (16:50)
[2023-03-23] MEDS: SODIUM CHLORIDE 0.9% 1,000 ML IV SCH (16:51)
[2023-03-23] MEDS ORDERED: IV FLUID CONTINUATION 1,000 ML IV ONE (17:40)
[2023-03-23] MEDS: MIDAZOLAM 2 MG/2 ML VIAL IVP ONE ×2 (17:42→17:55)
[2023-03-23] MEDS: LIDOCAINE 1% INJ 10MG/ML (20 ML MDV) SQ ONE ×2 (17:42→17:49)
[2023-03-23] MEDS ORDERED: fentaNYL (PF) 50 MCG/ML 2 ML AMP IVP ONE (17:55)
[2023-03-23] MEDS ORDERED: HEPARIN SODIUM 1,000 UN/ML (10ML VL) IV ONE (18:07)
--- NOTE | 2023-03-23 18:51 | IR ---
EXAMINATION TYPE: IR cvc insert central tunneled DATE OF EXAM: 03/23/2023 FLUOROSCOPY Dialysis, 0.3 minutes flouro time. 0.3006 mGycm2 DAP, 14.5F x 19cm. Rt IJ dialysis cathet. 41 images submitted.
--- NOTE | 2023-03-23 19:24 | OP ---
OPERATIVE REPORT DATE OF SERVICE : The patient was brought to the slab lifting supervisor. PREOPERATIVE DIAGNOSES: Peritonitis from her peritoneal dialysis catheter, acute renal failure. PROCEDURE PERFORMED: Placement of a 19 cm dialysis catheter right ultrasound-guided right jugular approach. DESCRIPTION OF PROCEDURE: The patient was brought to the slab lifting supervisor. Right chest and neck was prepped and draped in usual sterile manner. 1% lidocaine was infiltrated IV sedation. Ultrasound-guided micropuncture introduced right jugular vein micropuncture guidewire was passed and 4- B[place]udian dilator on top of the guidewire. Through the sheath we passed a regular guidewire which was parked in the inferior vena cava. Then tunnel was created. Through the tunnel, we brought 90 cm dialysis catheter. After that, we passed a dilator. Then we passed the sheath on the top of the guidewire. Through the sheath, we placed a dialysis catheter. Tip of catheter in superior vena caval atrial junction. Flushed with heparin saline and hep-locked, secured with 3-0 nylon dressing applied patient tolerated the procedure well. MMODL / IJN: [id number] /
--- NOTE | 2023-03-23 19:28 | XR ---
EXAMINATION TYPE: XR chest 1V confirm line plcmt DATE OF EXAM: 03/23/2023 7:23 PM CLINICAL INDICATION:Female, 37 years old with history of confirm permacath placement; [facility] COMPARISON: 06/02/2021 TECHNIQUE: XR chest 1V confirm line plcmt Portable AP radiograph of the chest.. FINDINGS: Lines/Tubes/Devices: EKG leads over the chest. Right IJ approach tunneled dialysis catheter with tips in good position ove rlying the SVC/RA junction. Heart/mediastinum: Heart size is normal. Mediastinum appears normal. Pulmonary vascularity: Not increased, Lungs/Pleura: There is no evidence of pleural effusion, focal consolidation, or pneumothorax. Musculoskeletal: No acute osseous abnormality demonstrated in the limits of the exam. Other findings: None. IMPRESSION: Right IJ approach tunneled dialysis catheter with tips in good position overlying the SVC/RA junction . No acute cardiopulmonary abnormality.
[2023-03-23] MEDS: ATORVASTATIN 20 MG TAB PO SCH (20:40)
[2023-03-23] MEDS: EZETIMIBE 10 MG TAB PO SCH (20:40)
--- NOTE | 2023-03-23 21:43 | CONS ---
CONSULTATION HISTORY OF PRESENT ILLNESS: This is a 37-year-old white female, patient has history of chronic renal failure. The patient has a peritoneal dialysis which is infected with gram-positive cocci. The patient is scheduled to have removal of the peritoneal dialysis catheter tomorrow. I was consulted for placement of a dialysis catheter, right jugular approach. MEDICAL HISTORY: History of hypertension, renal disease. PERSONAL HISTORY: No known allergies. PHYSICAL EXAMINATION: NECK: Supple. No bruit appreciated. CHEST: Clear, good in both lungs. HEART: First and second sounds present. ABDOMEN: The patient has peritonitis due to the dialysis catheter. Femorals are present. PLAN: Placement of a dialysis catheter. Risks and complications discussed. MMODL / IJN: [id number] /
--- NOTE | 2023-03-23 23:02 | P.CONS ---
History of Present Illness - Reason for Consult Consult date: 03/23/23 Peritonitis Requesting physician: Baljit Strong - Chief Complaint Abdominal pain and positive peritoneal fluid culture x few days - History of Present Illness Patient is a 37-year-old female with a past medical history significant for hypertension the patient did have a history of end-stage renal disease on peritoneal dialysis patient apparently did have a multiple episodes of peritonitis that has been treated with the intraperitoneal vancomycin and rifampin however the patient was noticed to have a cloudy peritoneal fluid and the cultures came back positive with gram-positive cocci for the patient was advised to come to the hospital for removal of the PD catheter and starting hemodialysis patient denies high-grade fever or any chills she is breathing comfortably on room air no headache or URI symptoms no chest pain shortness of breath or cough did have some dull abdominal pain mild to moderate intensity without any radiation any cloudy peritoneal fluid denies having any diarrhea. On presentation to the hospital the patient was afebrile did have white count of 9.2 creatinine 6.92 electrolytes are normal liver isms are normal patient has been started on vancomycin systemically infectious disease was consulted for further management of antibiotic therapy Review of Systems Positive point and negatives has been mentioned in the HPI, complete review of systems was performed and all other systems are negative Past Medical History Past Medical History: Hypertension, Renal Disease Additional Past Medical History / Comment(s): end stage kidney failure, dialysis History of Any Multi-Drug Resistant Organisms: None Reported Past Surgical History: No Surgical Hx Reported Additional Past Surgical History / Comment(s): dilaysis cath Past Anesthesia/Blood Transfusion Reactions: No Reported Reaction Past Psychological History: No Psychological Hx Reported Smoking Status: Never smoker Past Alcohol Use History: None Reported Past Drug Use History: None Reported - Past Family History Mother Family Medical History: Congestive Heart Failure (CHF) Father Family Medical History: No Reported History Medications and Allergies Home Medications Medication Instructions Recorded Confirmed Type Furosemide [Lasix] 40 mg PO DIRECTED 06/05/21 03/22/23 History calcitrioL 0.25 mcg PO HS 06/05/21 03/22/23 History Atorvastatin [Lipitor] 20 mg PO HS 02/04/23 03/22/23 History Ezetimibe [Zetia] 10 mg PO HS 02/04/23 03/22/23 History Levothyroxine Sodium [Synthroid] 50 mcg PO DAILY 02/04/23 03/22/23 History Losartan Potassium 50 mg PO DAILY@1330 02/04/23 03/22/23 History Magnesium Oxide [Mag-Ox] 400 mg PO W/SUPPER 02/04/23 03/22/23 History Sodium Bicarbonate Tab 650 mg PO DAILY@1330 02/04/23 03/22/23 History Folic Acid/Vit B Complex and C 0.8 mg PO DAILY 03/22/23 03/22/23 History [Nephro-Graciela Tablet] allopurinoL [Zyloprim] 100 mg PO DAILY 03/22/23 03/22/23 History Allergies Allergy/AdvReac Type Severity Reaction Status Date / Time No Known Allergies Allergy Verified 03/22/23 22:09 Physical Exam Vitals: Vital Signs Temp Pulse Resp BP Pulse Ox 03/23/23 06:15 98.2 F 86 17 133/84 100 03/23/23 04:24 93 17 123/72 99 03/23/23 02:19 99 17 03/23/23 00:43 66 18 134/77 98 03/22/23 22:30 57 L 18 149/82 100 03/22/23 19:39 98.0 F 67 18 157/93 100 03/22/23 16:09 98.4 F 70 20 143/80 100 Intake and Output 03/22/23 03/23/23 03/23/23 22:59 06:59 14:59 Other: Weight 58.967 kg GENERAL DESCRIPTION: Middle-aged female lying in bed, no distress. No tachypnea or accessory muscle of respiration use. HEENT: Shows Pallor , no scleral icterus. Oral mucous membrane is dry. NECK: Trachea central, no thyromegaly. LUNGS: Unlabored breathing. Clear to auscultation anteriorly. No wheeze or crackle. HEART: S1, S2, regular rate and rhythm. No loud murmur ABDOMEN: Soft, no tenderness , guarding or rigidity, no organomegaly EXTREMITIES: No edema of feet. SKIN: No rash, no masses palpable. NEUROLOGICAL: The patient is awake, alert, oriented x3, mood and affect normal. Results CBC & Chem 7: 03/25/23 11:05 03/25/23 11:05 Labs: Abnormal Lab Results - Last 24 Hours (Table) 03/22/23 03/22/23 03/23/23 Range/Units 19:30 19:30 07:21 RBC 3.63 L 3.56 L (3.80-5.40) m/uL ESR 32 H (0-20) mm/Hr Sodium 136 L (137-145) mmol/L Carbon Dioxide (22-30) mmol/L BUN 67 H (7-17) mg/dL Creatinine 6.92 H (0.52-1.04) mg/dL Total Protein (6.3-8.2) g/dL 03/23/23 Range/Units 07:21 RBC (3.80-5.40) m/uL ESR (0-20) mm/Hr Sodium 136 L (137-145) mmol/L Carbon Dioxide 20 L (22-30) mmol/L BUN 64 H (7-17) mg/dL Creatinine 7.31 H* (0.52-1.04) mg/dL Total Protein 6.1 L (6.3-8.2) g/dL Assessment and Plan (1) Peritonitis Current Visit: Yes Status: Acute Code(s): K65.9 - PERITONITIS, UNSPECIFIED SNOMED Code(s): 23796172 Plan: 1patient presented to hospital with recurrent PD catheter associated peritoniti s that has been treated with multiple courses of antibiotic with a recent culture apparently positive for gram-positive cocci we will try to obtain the culture report as it was done outside at this facility. 2agree with removal of the PD catheter because of recurrent episodes of peritonitis feeling antibiotic therapy and initiation of hemodialysis. 3vancomycin pharmacy to dose target trough of 15 to continue We will follow on clinical condition and cultures to further adjust medication if needed Thank you for this consultation we will follow the patient along with you Dictation was produced using [employer] dictation software. please excuse any grammatical, word or spelling errors. Time with Patient: Greater than 30
[2023-03-24] MEDS: LEVOTHYROXINE 50 MCG TAB PO SCH (05:03)
[2023-03-24] MEDS ORDERED: fentaNYL (PF) 50 MCG/ML 2 ML AMP IV PRN (08:24)
[2023-03-24] MEDS ORDERED: DEXAMETHASONE SOD PHOSPHATE 4 MG/ML 1 ML VIAL IV ONE (08:24)
[2023-03-24] MEDS ORDERED: ONDANSETRON 4 MG/2 ML VIAL IVP ONE (08:24)
--- NOTE | 2023-03-24 11:57 | P.PN ---
Subjective Patient is seen in follow-up for end-stage renal disease. Permacath placed yesterday. PD catheter to be removed today. On IV antibiotics. No active complaints. Vital signs are stable. General: No acute distress. HEENT: Head exam is unremarkable. LUNGS: No audible rhonchi or wheezes. HEART: Rate and Rhythm are regular. ABDOMEN: Nontender. EXTREMITITES: No edema. Objective - Vital Signs Vital signs: Vital Signs Temp 97.7 F 03/24/23 07:55 Pulse 69 03/24/23 07:55 Resp 18 03/24/23 07:55 BP 153/77 03/24/23 07:55 Pulse Ox 98 03/24/23 07:55 FiO2 Intake & Output 03/23/23 03/24/23 03/24/23 18:59 06:59 18:59 Intake Total 75 Balance 75 Weight 58.967 kg Intake: IV 25 Intake, IV Titration 50 Amount Sodium Chloride 0.9% 1, 50 000 ml @ 50 mls/hr IV . Q20H [facility] Rx#:[id number] Other: Voiding Method Toilet Toilet Toilet # Voids 3 - Labs CBC & Chem 7: 03/23/23 07:21 03/23/23 07:21 Labs: Microbiology - Last 24 Hours (Table) 03/22/23 19:23 Blood Culture - Preliminary Blood 03/22/23 19:08 Blood Culture - Preliminary Blood Assessment and Plan Plan: Assessment: 1. End-stage renal disease maintained on peritoneal dialysis. 2. Recurrent peritonitis with gram-positive cocci. PD catheter to be removed today. Permacath for hemodialysis placed March 23, 2023. 3. Chronic kidney disease mineral bone disease maintained on calcitriol. 4. Hypertension with chronic kidney disease. Stable. 5. Metabolic acidosis secondary to chronic kidney disease maintained on oral bicarb. Plan: Hemodialysis today. She will be maintained on Wednesday schedule outpatient. IV antibiotics per ID. Monitor vancomycin levels. Dose to be adjusted for renal function.
--- NOTE | 2023-03-24 12:34 | P.PN ---
Subjective Progress Note Date: 03/24/23 * 37-year-old patient with past medical history significant for end-stage renal disease on hemodialysis, peritoneal dialysis who has been dealing with infected peritoneal fluid and has been treated with IV antibiotics, previously seen by infectious disease presents to the emergency department with complain ts of peritoneal fluid being cloudy, and concern for persistent infection patient has been following up with nephrology, at the time of presentation she denies fever, chills, abdominal pain, nausea, vomiting, diarrhea. * Workup initiated in ER included WBC which was 9.2 hemoglobin 12.1 platelet count of 259 ESR of 32 * Serum chemistry obtained showed sodium 136 potassium 3.7 BUN 67 creatinine 6.92 liver profile within normal limits CRP 0.8 * Previously patient has been treated with intraperitoneal vancomycin, patient was admitted in January and discharged on 02/06/2023, with plan to continue intraperitoneal vancomycin for PD peritonitis. * Patient admitted to medical floor with consultation obtained from infectious disease, nephrology, vascular surgery * 03/24/2023: Patient seen and evaluated at bedside, patient has hemodialysis catheter in place, peritoneal dialysis in place as well. Patient denies fever or chills, WBC count reviewed from yesterday within normal limits. Patient is on vancomycin pharmacy to dose REVIEW OF SYSTEMS: Cloudy peritoneal fluid, fatigue malaise resolved CONSTITUTIONAL: Cloudy peritoneal fluid, fatigue malaise resolved HEENT: No recent visual problems or hearing problems. Denied any sore throat. CARDIOVASCULAR: No chest pain, orthopnea, PND, no palpitations, no syncope. PULMONARY: No shortness of breath, no cough, no hemoptysis. GASTROINTESTINAL: No diarrhea, no nausea, no vomiting, no abdominal pain. NEUROLOGICAL: No headaches, no weakness, no numbness. HEMATOLOGICAL: Denies any bleeding or petechiae. GENITOURINARY: Denies any burning micturition, frequency, or urgency. MUSCULOSKELETAL/RHEUMATOLOGICAL: Denies any joint pain, swelling, or any muscle pain. ENDOCRINE: Denies any polyuria or polydipsia. PHYSICAL EXAMINATION: GENERAL: The patient is alert and oriented x3, not in any acute distress. Well developed, well nourished. Pale appearance, right anterior chest wall hemodialysis catheter in place HEENT: Pupils are round and equally reacting to light. EOMI. No scleral icterus. CARDIOVASCULAR: S1 and S2 present. No murmurs, rubs, or gallops. PULMONARY: Chest is clear to auscultation, no wheezing or crackles. ABDOMEN: Soft, nontender, nondistended, PD cath in place MUSCULOSKELETAL: No joint swelling or deformity. EXTREMITIES: No cyanosis, clubbing, or pedal edema. NEUROLOGICAL: Gross neurological examination did not reveal any focal deficits. SKIN: No rashes. Objective - Vital Signs Vital signs: Vital Signs Temp 97.7 F 03/24/23 07:55 Pulse 69 03/24/23 07:55 Resp 18 03/24/23 07:55 BP 153/77 03/24/23 07:55 Pulse Ox 98 03/24/23 07:55 FiO2 Intake & Output 03/23/23 03/24/23 03/24/23 18:59 06:59 18:59 Intake Total 75 Balance 75 Weight 58.967 kg Intake: IV 25 Intake, IV Titration 50 Amount Sodium Chloride 0.9% 1, 50 000 ml @ 50 mls/hr IV . Q20H [facility] Rx#:[id number] Other: Voiding Method Toilet Toilet Toilet # Voids 3 # Bowel Movements 1 - Labs CBC & Chem 7: 03/23/23 07:21 03/23/23 07:21 Labs: Microbiology - Last 24 Hours (Table) 03/22/23 19:23 Blood Culture - Preliminary Blood 03/22/23 19:08 Blood Culture - Preliminary Blood Assessment and Plan Assessment: Assessment and plan * End-stage renal disease on peritoneal dialysis * History of recurrent peritonitis associated with peritoneal dialysis * History of hypertension * Chronic kidney disease, with mineral bone disease * In regards to end-stage renal disease, nephrology consulted, defer dialysis management to nephrology * In regards to history of hypertension, continue losartan * In regards to history of peritonitis associated with PD, continue patient on vancomycin infectious disease consult, vancomycin pharmacy to dose * In regards to mineral bone disease continue patient on calcitriol, folic acid * SCDs for DVT prophylaxis * CODE STATUS is full code * Time with Patient: Greater than 30
--- NOTE | 2023-03-24 12:37 | P.PN ---
Subjective Progress Note Date: 03/24/23 Principal diagnosis: Reason for follow-up his PD catheter associated peritonitis Patient is a 37-year-old female with a past medical history significant for hypertension the patient did have a history of end-stage renal disease on peritoneal dialysis patient apparently did have a multiple episodes of peritonitis that has been treated with the intraperitoneal vancomycin and rifampin, with persistent positive culture patient admitted to hospital for removal of the peritoneal dialysis catheter and initiation of hemodialysis. Patient did have a right IJ dialysis catheter placement on 03/23/2023. On today's evaluation that is 03/24/2023, the patient denies having any fever or any chills, the patient is currently breathing comfortably on room air patient denies having any chest pain cough or sputum production denies any nausea vomiting no abdominal pain decreased in intensity. No CBC was done today the patient have vancomycin level 32.9 blood cultures are pending Objective - Vital Signs Vital signs: Vital Signs Temp 97.7 F 03/24/23 07:55 Pulse 69 03/24/23 07:55 Resp 18 03/24/23 07:55 BP 153/77 03/24/23 07:55 Pulse Ox 98 03/24/23 07:55 FiO2 Intake & Output 03/23/23 03/24/23 03/24/23 18:59 06:59 18:59 Intake Total 75 Balance 75 Weight 58.967 kg Intake: IV 25 Intake, IV Titration 50 Amount Sodium Chloride 0.9% 1, 50 000 ml @ 50 mls/hr IV . Q20H [facility] Rx#:[id number] Other: Voiding Method Toilet Toilet Toilet # Voids 3 # Bowel Movements 1 - Exam GENERAL DESCRIPTION: Middle-age female lying in bed in no distress RESPIRATORY SYSTEM: Unlabored breathing , decreased breath sounds at bases HEART: S1 S2 regular rate and rhythm , ABDOMEN: Soft , no tenderness EXTREMITIES: No edema feet - Labs CBC & Chem 7: 03/23/23 07:21 03/23/23 07:21 Labs: Microbiology - Last 24 Hours (Table) 03/22/23 19:23 Blood Culture - Preliminary Blood 03/22/23 19:08 Blood Culture - Preliminary Blood Assessment and Plan (1) Peritonitis Current Visit: Yes Status: Acute Code(s): K65.9 - PERITONITIS, UNSPECIFIED SNOMED Code(s): 13326454 Plan: 1patient presented to hospital with recurrent PD catheter associated peritonitis that has been treated with multiple courses of antibiotic with a recent culture apparently positive for gram-positive cocci we will try to obtain the culture report as it was done outside at this facility. 2patient did have right IJ dialysis catheter placement currently waiting for removal of PD catheter 3patient to continue with vancomycin pharmacy to dose target trough of 15 and monitor clinical course closely Dictation was produced using [employer] dictation software. please excuse any grammatical, word or spelling errors. Time with Patient: Less than 30
[2023-03-24] MEDS: allopurinoL 100 MG TAB PO SCH (14:08)
[2023-03-24] MEDS: LOSARTAN 50 MG TAB PO SCH (14:08)
[2023-03-24] MEDS: SODIUM BICARBONATE TAB 650 MG TAB PO SCH (14:08)
[2023-03-24] MEDS: FOLIC ACID-VIT B COMPLEX-VIT C 1 CAP PO SCH (14:08)
[2023-03-24 16:16] LABS: Glucose,Whole Blood 73 mg/dL (70-110)
[2023-03-24 17:45] LABS: Glucose,Whole Blood 80 mg/dL (70-110)
[2023-03-24] MEDS: MAGNESIUM OXIDE 400 MG TAB PO SCH (18:39)
[2023-03-24] MEDS: SODIUM CHLORIDE 0.9% 1,000 ML IV SCH (18:39)
[2023-03-24] MEDS ORDERED: LIDOCAINE 2%-EPI 1:100,000 20 ML VIAL SQ ONE ×2 (18:59)
[2023-03-24] MEDS ORDERED: SODIUM CHLORIDE 0.9% 1,000 ML IV ONE (18:59)
--- NOTE | 2023-03-24 19:23 | P.OP ---
Date of Procedure: 03/24/23 Procedure(s) Performed: PREOPERATIVE DIAGNOSIS: Renal failure, recurrent peritonitis POSTOPERATIVE DIAGNOSIS: Same PROCEDURE: PD cath removal SURGEON: Rand EBL: 2 mL ANESTHESIA: Sedation and local COMPLICATIONS: None OPERATIVE PROCEDURE: Patient was placed in the supine position. The abdomen was prepped and draped in usual sterile fashion. The previous paramedian incision was re-incised after localizing the skin. The subcutaneous tissues were divided using electrocautery. Blunt dissection around the cuff that was present at the fascia and peritoneum took place. The cuff was fully mobilized. The catheter was removed from the perineal cavity. The outer cuff was dissected from the saphenous fascia using electrocautery. The catheter was cut on the other side of that cuff and the catheter was removed. The fascial defect was closed using a single [id number] 0 Vicryl stitch. The subcutaneous tissues were closed using 3-0 Vicryl sutures and the skin using 4-0 Monocryl sutures. Skin glue and sterile dressings were applied. DISPOSITION: Stable to recovery room
[2023-03-24] MEDS: EZETIMIBE 10 MG TAB PO SCH (21:28)
[2023-03-24] MEDS: ATORVASTATIN 20 MG TAB PO SCH (21:28)
[2023-03-25] MEDS: LACTATED RINGERS 1,000 ML IV SCH ×2 (00:41→09:00)
[2023-03-25 03:38] LABS: Hepatitis B Surface Antigen Nonreactive
[2023-03-25] MEDS: LEVOTHYROXINE 50 MCG TAB PO SCH (05:38)
[2023-03-25] MEDS: SODIUM CHLORIDE 0.9% 1,000 ML IV SCH (09:01)
[2023-03-25] MEDS: allopurinoL 100 MG TAB PO SCH (09:02)
[2023-03-25] MEDS: FOLIC ACID-VIT B COMPLEX-VIT C 1 CAP PO SCH (09:02)
[2023-03-25 12:31] LABS: Basophils % (A) 0 %; Eosinophils % (A) 0 %; HCT 31.8 % (34.0-46.0); HGB 10.9 gm/dL (11.4-16.0); Lymphocytes # (A) 1.1 k/uL (1.0-4.8); Lymphocytes % (A) 11 %; MCH 32.6 pg (25.0-35.0); MCHC 34.3 g/dL (31.0-37.0); MCV 95.1 fL (80.0-100.0); Mean Platelet Volume 8.2; Monocytes # (A) 0.6 k/uL (0-1.0); Monocytes % (A) 6 %; Neutrophils # (A) 7.8 k/uL (1.3-7.7); Neutrophils % (A) 81 %; Platelet Count 199 k/uL (150-450); RBC 3.35 m/uL (3.80-5.40); RDW 13.1 % (11.5-15.5); WBC 9.7 k/uL (3.8-10.6)
--- NOTE | 2023-03-25 12:40 | P.PN ---
Subjective Progress Note Date: 03/25/23 * 37-year-old patient with past medical history significant for end-stage renal disease on hemodialysis, peritoneal dialysis who has been dealing with infected peritoneal fluid and has been treated with IV antibiotics, previously seen by infectious disease presents to the emergency department with complain ts of peritoneal fluid being cloudy, and concern for persistent infection patient has been following up with nephrology, at the time of presentation she denies fever, chills, abdominal pain, nausea, vomiting, diarrhea. * Workup initiated in ER included WBC which was 9.2 hemoglobin 12.1 platelet count of 259 ESR of 32 * Serum chemistry obtained showed sodium 136 potassium 3.7 BUN 67 creatinine 6.92 liver profile within normal limits CRP 0.8 * Previously patient has been treated with intraperitoneal vancomycin, patient was admitted in January and discharged on 02/06/2023, with plan to continue intraperitoneal vancomycin for PD peritonitis. * Patient admitted to medical floor with consultation obtained from infectious disease, nephrology, vascular surgery * 03/24/2023: Patient seen and evaluated at bedside, patient has hemodialysis catheter in place, peritoneal dialysis in place as well. Patient denies fever or chills, WBC count reviewed from yesterday within normal limits. Patient is on vancomycin pharmacy to dose * 03/25/2023: Patient is seen and evaluated at bedside, peritoneal dialysis ca theter is removed hemodialysis session was on 03/24/2023. Patient denies fever, chills follow-up on CBC requested blood work REVIEW OF SYSTEMS: Cloudy peritoneal fluid, fatigue malaise resolved CONSTITUTIONAL: Cloudy peritoneal fluid, fatigue malaise resolved HEENT: No recent visual problems or hearing problems. Denied any sore throat. CARDIOVASCULAR: No chest pain, orthopnea, PND, no palpitations, no syncope. PULMONARY: No shortness of breath, no cough, no hemoptysis. GASTROINTESTINAL: No diarrhea, no nausea, no vomiting, no abdominal pain. NEUROLOGICAL: No headaches, no weakness, no numbness. HEMATOLOGICAL: Denies any bleeding or petechiae. GENITOURINARY: Denies any burning micturition, frequency, or urgency. MUSCULOSKELETAL/RHEUMATOLOGICAL: Denies any joint pain, swelling, or any muscle pain. ENDOCRINE: Denies any polyuria or polydipsia. PHYSICAL EXAMINATION: GENERAL: The patient is alert and oriented x3, not in any acute distress. Well developed, well nourished. Pale appearance, right anterior chest wall hemodialysis catheter in place HEENT: Pupils are round and equally reacting to light. EOMI. No scleral icterus. CARDIOVASCULAR: S1 and S2 present. No murmurs, rubs, or gallops. PULMONARY: Chest is clear to auscultation, no wheezing or crackles. ABDOMEN: Soft, nontender, nondistended, PD cath removed MUSCULOSKELETAL: No joint swelling or deformity. EXTREMITIES: No cyanosis, clubbing, or pedal edema. NEUROLOGICAL: Gross neurological examination did not reveal any focal deficits. SKIN: No rashes. Objective - Vital Signs Vital signs: Vital Signs Temp 98 F 03/25/23 07:59 Pulse 74 03/25/23 07:59 Resp 16 03/25/23 07:59 BP 133/74 03/25/23 07:59 Pulse Ox 99 03/25/23 07:59 FiO2 Intake & Output 03/24/23 03/25/23 03/25/23 18:59 06:59 18:59 Intake Total 1700 25 Output Total 1500 2 Balance 200 23 Intake: IV 100 25 Intake, IV Titration 600 Amount Sodium Chloride 0.9% 1, 600 000 ml @ 50 mls/hr IV . Q20H [facility] Rx#:[id number] Hemodialysis 1000 Output: Hemodialysis 1500 Estimated Blood Loss 2 Other: Voiding Method Toilet Toilet Toilet # Voids 3 # Bowel Movements 1 - Labs CBC & Chem 7: 03/25/23 11:05 03/23/23 07:21 Labs: Abnormal Lab Results - Last 24 Hours (Table) 03/24/23 03/25/23 Range/Units 09:07 11:05 RBC 3.35 L (3.80-5.40) m/uL Hgb 10.9 L (11.4-16.0) gm/dL Hct 31.8 L (34.0-46.0) % Neutrophils # 7.8 H (1.3-7.7) k/uL Hep Bs Antibody A (Negative) Microbiology - Last 24 Hours (Table) 03/22/23 19:23 Blood Culture - Preliminary Blood 03/22/23 19:08 Blood Culture - Preliminary Blood Assessment and Plan Assessment: Assessment and plan * End-stage renal disease on peritoneal dialysis * History of recurrent peritonitis associated with peritoneal dialysis * History of hypertension * Chronic kidney disease, with mineral bone disease * In regards to end-stage renal disease, nephrology consulted, defer dialysis management to nephrology * In regards to history of hypertension, continue losartan * In regards to history of peritonitis associated with PD, continue patient on vancomycin infectious disease consult, vancomycin pharmacy to dose * In regards to mineral bone disease continue patient on calcitriol, folic acid * SCDs for DVT prophylaxis * CODE STATUS is full code *
--- NOTE | 2023-03-25 12:58 | P.PN ---
Subjective Patient is seen in follow-up for end-stage renal disease. Permacath placed this admission. PD catheter removed. On IV antibiotics. No problems with hemodialysis yesterday. No active complaints. Vital signs are stable. General: No acute distress. HEENT: Head exam is unremarkable. LUNGS: No audible rhonchi or wheezes. HEART: Rate and Rhythm are regular. ABDOMEN: Nontender. EXTREMITITES: No edema. Objective - Vital Signs Vital signs: Vital Signs Temp 98 F 03/25/23 07:59 Pulse 74 03/25/23 07:59 Resp 16 03/25/23 07:59 BP 133/74 03/25/23 07:59 Pulse Ox 99 03/25/23 07:59 FiO2 Intake & Output 03/24/23 03/25/23 03/25/23 18:59 06:59 18:59 Intake Total 1700 25 Output Total 1500 2 Balance 200 23 Intake: IV 100 25 Intake, IV Titration 600 Amount Sodium Chloride 0.9% 1, 600 000 ml @ 50 mls/hr IV . Q20H [facility] Rx#:[id number] Hemodialysis 1000 Output: Hemodialysis 1500 Estimated Blood Loss 2 Other: Voiding Method Toilet Toilet Toilet # Voids 3 # Bowel Movements 1 - Labs CBC & Chem 7: 03/25/23 11:05 03/23/23 07:21 Labs: Abnormal Lab Results - Last 24 Hours (Table) 03/24/23 03/25/23 Range/Units 09:07 11:05 RBC 3.35 L (3.80-5.40) m/uL Hgb 10.9 L (11.4-16.0) gm/dL Hct 31.8 L (34.0-46.0) % Neutrophils # 7.8 H (1.3-7.7) k/uL Hep Bs Antibody A (Negative) Microbiology - Last 24 Hours (Table) 03/22/23 19:23 Blood Culture - Preliminary Blood 03/22/23 19:08 Blood Culture - Preliminary Blood Assessment and Plan Plan: Assessment: 1. End-stage renal disease maintained on peritoneal dialysis. 2. Recurrent peritonitis with gram-positive cocci. PD catheter to be removed March 24, 2023. Permacath for hemodialysis placed March 23, 2023. 3. Chronic kidney disease mineral bone disease maintained on calcitriol. 4. Hypertension with chronic kidney disease. Stable. 5. Metabolic acidosis secondary to chronic kidney disease maintained on oral bicarb. Plan: Hemodialysis tomorrow. [facility] IV antibiotics per ID. Monitor vancomycin levels. Dose to be adjusted for renal function.
[2023-03-25 13:15] LABS: African American GFR (CKD) 13 (>60 ml/min/1.73 sqM); Anion Gap 9 mmol/L; Blood Urea Nitrogen 30 mg/dL (7-17); Calcium 9.3 mg/dL (8.4-10.2); Carbon Dioxide 24 mmol/L (22-30); Chloride 103 mmol/L (98-107); Glucose 128 mg/dL (74-99); Magnesium 1.8 mg/dL (1.6-2.3); Non-African American GFR(CKD) 11 (>60 ml/min/1.73 sqM); Potassium 4.2 mmol/L (3.5-5.1); Sodium 136 mmol/L (137-145)
[2023-03-25] MEDS: LOSARTAN 50 MG TAB PO SCH (13:18)
[2023-03-25] MEDS: SODIUM BICARBONATE TAB 650 MG TAB PO SCH (13:18)
[2023-03-25 13:35] VITALS: BP 157/95; PULSE 81; RESP 18; TEMP 98.9
[2023-03-25] MEDS ORDERED: VANCOMYCIN 1,000 MG in SODIUM CHLORIDE 0.9% 250 ML IVPB ONE (14:00)
--- NOTE | 2023-03-25 15:35 | P.PN ---
Subjective Progress Note Date: 03/25/23 CHIEF COMPLAINT: Renal failure HISTORY OF PRESENT ILLNESS: Patient is status post peritoneal dialysis catheter removal. She has been started on hemodialysis. She reports minimal pain at old PD catheter site. She is having flatus. Denies any nausea or vomiting. Afebrile. WBC 9.7 PHYSICAL EXAM: VITAL SIGNS: Reviewed. GENERAL: Well-developed in no acute distress. ABDOMEN: Soft. Nondistended. Mild tenderness at incision site. Incision site clean dry and intact NEUROLOGIC: Alert and oriented. Cranial nerves II through XII grossly intact. ASSESSMENT: 1. Recurrent peritonitis 2. End-stage renal disease with peritoneal dialysis PLAN: -Continue supportive care -Patient can be discharged from surgical standpoint when medically cleared -Continue antibiotics per ID Physician Natural Resources Manager note has been reviewed by physician. Signing provider agrees with the documented findings, assessment, and plan of care. Objective - Vital Signs Vital signs: Vital Signs Temp 98.9 F 03/25/23 13:16 Pulse 81 03/25/23 13:16 Resp 18 03/25/23 13:16 BP 157/95 03/25/23 13:16 Pulse Ox 100 03/25/23 13:16 FiO2 Intake & Output 03/24/23 03/25/23 03/25/23 18:59 06:59 18:59 Intake Total 1700 25 Output Total 1500 2 Balance 200 23 Intake: IV 100 25 Intake, IV Titration 600 Amount Sodium Chloride 0.9% 1, 600 000 ml @ 50 mls/hr IV . Q20H [facility] Rx#:[id number] Hemodialysis 1000 Output: Hemodialysis 1500 Estimated Blood Loss 2 Other: Voiding Method Toilet Toilet Toilet # Voids 3 # Bowel Movements 1 - Labs CBC & Chem 7: 03/25/23 11:05 03/25/23 11:05 Labs: Abnormal Lab Results - Last 24 Hours (Table) 03/24/23 03/25/23 03/25/23 Range/Units 09:07 11:05 11:05 RBC 3.35 L (3.80-5.40) m/uL Hgb 10.9 L (11.4-16.0) gm/dL Hct 31.8 L (34.0-46.0) % Neutrophils # 7.8 H (1.3-7.7) k/uL Sodium 136 L (137-145) mmol/L BUN 30 H (7-17) mg/dL Creatinine 4.63 H (0.52-1.04) mg/dL Glucose 128 H (74-99) mg/dL Hep Bs Antibody A (Negative) Microbiology - Last 24 Hours (Table) 03/22/23 19:23 Blood Culture - Preliminary Blood 03/22/23 19:08 Blood Culture - Preliminary Blood
--- NOTE | 2023-03-25 16:05 | P.DS ---
Providers Date of admission: 03/22/23 21:33 Expected date of discharge: 03/25/23 Attending physician: Omar Morel MD Consults: 03/22/23 21:21 Consult Physician Urgent Consulting Provider: Baldo Durham Consult Reason/Comments: Peritonitis. Peritoneal dialysis > hemodialysis Do you want consulting provider notified?: Yes Consult Physician Urgent Consulting Provider: Checo Leos Consult Reason/Comments: Peritonitis Do you want consulting provider notified?: Yes 03/22/23 21:35 Consult Physician Urgent Consulting Provider: Francisco Gordillo Consult Reason/Comments: Peritonitis. Peritoneal dialysis > hemodialysis Do you want consulting provider notified?: Yes 03/22/23 21:36 Consult Physician Urgent Consulting Provider: Edson Mckeon Consult Reason/Comments: Peritonitis Do you want consulting provider notified?: Yes Primary care physician: [facility] Course: * 37-year-old patient with past medical history significant for end-stage renal disease on hemodialysis, peritoneal dialysis who has been dealing with infected peritoneal fluid and has been treated with IV antibiotics, previously seen by infectious disease presents to the emergency department with complaints of peritoneal fluid being cloudy, and concern for persistent infection patient has been following up with nephrology, at the time of presentation she denies fever, chills, abdominal pain, nausea, vomiting, diarrhea. * Workup initiated in ER included WBC which was 9.2 hemoglobin 12.1 platelet count of 259 ESR of 32 * Serum chemistry obtained showed sodium 136 potassium 3.7 BUN 67 creatinine 6.92 liver profile within normal limits CRP 0.8 * Previously patient has been treated with intraperitoneal vancomycin, patient was admitted in January and discharged on 02/06/2023, with plan to continue intraperitoneal vancomycin for PD peritonitis. * Patient admitted to medical floor with consultation obtained from infectious disease, nephrology, vascular surgery * 03/24/2023: Patient seen and evaluated at bedside, patient has hemodialysis catheter in place, peritoneal dialysis in place as well. Patient denies fever or chills, WBC count reviewed from yesterday within normal limits. Patient is on vancomycin pharmacy to dose * 03/25/2023: Patient is seen and evaluated at bedside, peritoneal dialysis catheter is removed hemodialysis session was on 03/24/2023. Patient denies fever, chills follow-up on CBC requested blood work. Antibioitcs set up, outpatient HD REVIEW OF SYSTEMS: Cloudy peritoneal fluid, fatigue malaise resolved CONSTITUTIONAL: Cloudy peritoneal fluid, fatigue malaise resolved HEENT: No recent visual problems or hearing problems. Denied any sore throat. CARDIOVASCULAR: No chest pain, orthopnea, PND, no palpitations, no syncope. PULMONARY: No shortness of breath, no cough, no hemoptysis. GASTROINTESTINAL: No diarrhea, no nausea, no vomiting, no abdominal pain. NEUROLOGICAL: No headaches, no weakness, no numbness. HEMATOLOGICAL: Denies any bleeding or petechiae. GENITOURINARY: Denies any burning micturition, frequency, or urgency. MUSCULOSKELETAL/RHEUMATOLOGICAL: Denies any joint pain, swelling, or any muscle pain. ENDOCRINE: Denies any polyuria or polydipsia. PHYSICAL EXAMINATION: GENERAL: The patient is alert and oriented x3, not in any acute distress. Well developed, well nourished. Pale appearance, right anterior chest wall hemodialysis catheter in place HEENT: Pupils are round and equally reacting to light. EOMI. No scleral icterus. CARDIOVASCULAR: S1 and S2 present. No murmurs, rubs, or gallops. PULMONARY: Chest is clear to auscultation, no wheezing or crackles. ABDOMEN: Soft, nontender, nondistended, PD cath removed MUSCULOSKELETAL: No joint swelling or deformity. EXTREMITIES: No cyanosis, clubbing, or pedal edema. NEUROLOGICAL: Gross neurological examination did not reveal any focal deficits. SKIN: No rashes. Assessment and plan * End-stage renal disease on peritoneal dialysis * History of recurrent peritonitis associated with peritoneal dialysis * History of hypertension * Chronic kidney disease, with mineral bone disease * In regards to end-stage renal disease, nephrology consulted, defer dialysis management to nephrology * In regards to history of hypertension, continue losartan * In regards to history of peritonitis associated with PD, continue patient on vancomycin infectious disease consult, vancomycin with HD * In regards to mineral bone disease continue patient on calcitriol, folic acid Patient Condition at Discharge: Good Plan - Discharge Summary Discharge Rx Participant: No New Discharge Prescriptions: Continue Sodium Bicarbonate Tab 650 mg PO DAILY@1330 Magnesium Oxide [Mag-Ox] 400 mg PO W/SUPPER allopurinoL [Zyloprim] 100 mg PO DAILY Furosemide [Lasix] 40 mg PO DIRECTED calcitrioL 0.25 mcg PO HS Levothyroxine Sodium [Synthroid] 50 mcg PO DAILY Ezetimibe [Zetia] 10 mg PO HS Losartan Potassium 50 mg PO DAILY@1330 Atorvastatin [Lipitor] 20 mg PO HS Folic Acid/Vit B Complex and C [Nephro-Graciela Tablet] 0.8 mg PO DAILY Discharge Medication List Furosemide [Lasix] 40 mg PO DIRECTED 06/05/21 [History] calcitrioL 0.25 mcg PO HS 06/05/21 [History] Atorvastatin [Lipitor] 20 mg PO HS 02/04/23 [History] Ezetimibe [Zetia] 10 mg PO HS 02/04/23 [History] Levothyroxine Sodium [Synthroid] 50 mcg PO DAILY 02/04/23 [History] Losartan Potassium 50 mg PO DAILY@1330 02/04/23 [History] Magnesium Oxide [Mag-Ox] 400 mg PO W/SUPPER 02/04/23 [History] Sodium Bicarbonate Tab 650 mg PO DAILY@1330 02/04/23 [History] Folic Acid/Vit B Complex and C [Nephro-Graciela Tablet] 0.8 mg PO DAILY 03/22/23 [History] allopurinoL [Zyloprim] 100 mg PO DAILY 03/22/23 [History] Follow up Appointment(s)/Referral(s): Tegan Hayden MD [Primary Care Provider] - 1-2 days Activity/Diet/Wound Care/Special Instructions: pt chair time at [facility] is MWF at 2pm. phone number At d/c please Fax d/c [facility] Discharge Disposition: HOME SELF-CARE
--- NOTE | 2023-03-25 16:32 | P.PN ---
Subjective Progress Note Date: 03/25/23 Principal diagnosis: Reason for follow-up his PD catheter associated peritonitis Patient is a 37-year-old female with a past medical history significant for hypertension the patient did have a history of end-stage renal disease on peritoneal dialysis patient apparently did have a multiple episodes of peritonitis that has been treated with the intraperitoneal vancomycin and rifampin, with persistent positive culture patient admitted to hospital for removal of the peritoneal dialysis catheter and initiation of hemodialysis. Patient did have a right IJ dialysis catheter placement on 03/23/2023. On today's evaluation that is 03/25/2023, patient remains to be afebrile, the patient is breathing comfortably on room air denies any chest pain shortness of breath or cough no nausea vomiting no abdominal pain no diarrhea has been reported. Patient white count is 9.7, creatinine is 4.63, vancomycin random is 17.4, blood culture so far negative Objective - Vital Signs Vital signs: Vital Signs Temp 98.9 F 03/25/23 13:16 Pulse 81 03/25/23 13:16 Resp 18 03/25/23 13:16 BP 157/95 03/25/23 13:16 Pulse Ox 100 03/25/23 13:16 FiO2 Intake & Output 03/24/23 03/25/23 03/25/23 18:59 06:59 18:59 Intake Total 1700 25 Output Total 1500 2 Balance 200 23 Intake: IV 100 25 Intake, IV Titration 600 Amount Sodium Chloride 0.9% 1, 600 000 ml @ 50 mls/hr IV . Q20H [facility] Rx#:[id number] Hemodialysis 1000 Output: Hemodialysis 1500 Estimated Blood Loss 2 Other: Voiding Method Toilet Toilet Toilet # Voids 3 # Bowel Movements 1 - Exam GENERAL DESCRIPTION: Middle-age female lying in bed in no distress RESPIRATORY SYSTEM: Unlabored breathing , decreased breath sounds at bases HEART: S1 S2 regular rate and rhythm , ABDOMEN: Soft , no tenderness EXTREMITIES: No edema feet - Labs CBC & Chem 7: 03/25/23 11:05 03/25/23 11:05 Labs: Abnormal Lab Results - Last 24 Hours (Table) 03/24/23 03/25/23 03/25/23 Range/Units 09:07 11:05 11:05 RBC 3.35 L (3.80-5.40) m/uL Hgb 10.9 L (11.4-16.0) gm/dL Hct 31.8 L (34.0-46.0) % Neutrophils # 7.8 H (1.3-7.7) k/uL Sodium 136 L (137-145) mmol/L BUN 30 H (7-17) mg/dL Creatinine 4.63 H (0.52-1.04) mg/dL Glucose 128 H (74-99) mg/dL Hep Bs Antibody A (Negative) Microbiology - Last 24 Hours (Table) 03/22/23 19:23 Blood Culture - Preliminary Blood 03/22/23 19:08 Blood Culture - Preliminary Blood Assessment and Plan (1) Peritonitis Current Visit: Yes Status: Acute Code(s): K65.9 - PERITONITIS, UNSPECIFIED SNOMED Code(s): 02642135 Plan: 1patient presented to hospital with recurrent PD catheter associated peritonitis that has been treated with multiple courses of antibiotic with a recent culture apparently positive for gram-positive cocci we will try to obtain the culture report as it was done outside at this facility. 2patient did have right IJ dialysis catheter placement and is status post removal of PD catheter on 03/24/23 3patient to continue with vancomycin pharmacy to dose target trough of 15 which can be done through the dialysis so no need for PICC line prescription was provided to the returned case inspector Dictation was produced using [employer] dictation software. please excuse any grammatical, word or spelling errors. Time with Patient: Less than 30
== END 2023-03-25 17:32 | disposition home or self-care (01) | DRG 907 ==
LOC: EC 15:16 → 4SSUR 21:33 → 5NMEDONC 03-23 17:11
PROVIDERS: ADMIT Internal Medicine; ATTEND Internal Medicine
PROC: 02HV33Z Insertion of Infusion Device into Superior Vena Cava, Percutaneous Approach (ICD-10-PCS; principal; 2023-03-23 11:25)
PROC: 0WPG03Z Removal of Infusion Device from Peritoneal Cavity, Open Approach (ICD-10-PCS; 2023-03-24)
PROC: 5A1D70Z Performance of Urinary Filtration, Intermittent, Less than 6 Hours Per Day (ICD-10-PCS; 2023-03-24)
DX: T85.71XA Infection and inflammatory reaction due to peritoneal dialysis catheter, initial encounter (principal); N18.6 End stage renal disease; N17.9 Acute kidney failure, unspecified; I12.9 Hypertensive chronic kidney disease with stage 1 through stage 4 chronic kidney disease, or unspecified chronic kidney disease; E83.9 Disorder of mineral metabolism, unspecified; Z79.890 Hormone replacement therapy; Z79.899 Other long term (current) drug therapy; Z82.49 Family history of ischemic heart disease and other diseases of the circulatory system; Z99.2 Dependence on renal dialysis; Z28.21 Immunization not carried out because of patient refusal; Z79.3 Long term (current) use of hormonal contraceptives
CPT/HCPCS: 36415; 36558; 76937; 77001; 80048; 80053; 80202; 81025; 83605; 83735; 85025; 85652; 86140; 86706; 87040; 87340; 90935; 96361; 96365; 96366; 99285

== ENCOUNTER 2023-07-22 11:24 | Day surgery (SDC) | payer BC, MEDICARE ==
[2023-07-20 14:42] VITALS: BMI 23.0
[~2023-07-22 11:24] MED LIST changes: -ACETAMINOPHEN TAB 500 MG TAB PO PRN; -DEXAMETHASONE SOD PHOSPHATE 4 MG/ML 1 ML VIAL IV ONE; -HEPARIN SODIUM,PORCINE/PF 5,000 UNIT/0.5 ML SYRINGE SQ PRN; +LIDOCAINE 1% (10MG/ML) FOR IV START INTRADERMA PRN; -ONDANSETRON 4 MG/2 ML VIAL IVP ONE; -SCOPOLAMINE 1 MG/72 HR PATCH TRANSDERM ONE; +fentaNYL (PF) 50 MCG/ML 2 ML AMP IVP PRN
[2023-07-22] MEDS: IV FLUID CONTINUATION 500 ML IV ONE (12:10)
[2023-07-22] MEDS: ONDANSETRON 4 MG/2 ML VIAL IVP ONE (12:20)
[2023-07-22] MEDS: ACETAMINOPHEN TAB 500 MG TAB PO PRN (12:20)
[2023-07-22] MEDS: DEXAMETHASONE SOD PHOSPHATE 4 MG/ML 1 ML VIAL IV ONE (12:20)
[2023-07-22] MEDS: HEPARIN SODIUM,PORCINE 5,000 UNIT/ML 1 ML VIAL SQ PRN (12:22)
[2023-07-22 12:25] LABS: HGB 12.7 gm/dL (11.4-16.0); MCH 31.2 pg (25.0-35.0); MCHC 32.6 g/dL (31.0-37.0); MCV 95.9 fL (80.0-100.0); Mean Platelet Volume 7.5; Platelet Count 249 k/uL (150-450); RBC 4.07 m/uL (3.80-5.40); RDW 13.3 % (11.5-15.5); WBC 6.8 k/uL (3.8-10.6)
[2023-07-22] MEDS ORDERED: LIDOCAINE 1% INJ 10MG/ML (20 ML MDV) ONE (12:25)
[2023-07-22] MEDS ORDERED: PROPOFOL 10 MG/ML 20 ML VIAL IV ONE (12:25)
[2023-07-22] MEDS ORDERED: fentaNYL (PF) 50 MCG/ML 2 ML AMP ONE (12:25)
[2023-07-22] MEDS ORDERED: MIDAZOLAM 2 MG/2 ML VIAL ONE (12:25)
[2023-07-22] MEDS ORDERED: KETAMINE HCL IN 0.9 % NACL 50 MG/5 ML SYRINGE ONE (12:25)
[2023-07-22 12:39] LABS: African American GFR (CKD) 6 (>60 ml/min/1.73 sqM); Anion Gap 12 mmol/L; Blood Urea Nitrogen 60 mg/dL (7-17); Calcium 10.1 mg/dL (8.4-10.2); Carbon Dioxide 23 mmol/L (22-30); Chloride 105 mmol/L (98-107); Glucose 86 mg/dL (74-99); Non-African American GFR(CKD) 6 (>60 ml/min/1.73 sqM); Potassium 4.9 mmol/L (3.5-5.1); Sodium 140 mmol/L (137-145)
--- NOTE | 2023-07-22 12:47 | P.GSHP ---
History of Present Illness H&P Date: 07/22/23 Chief Complaint: Renal failure 37-year-old female here today for elective dialysis catheter insertion. Patient had her peritoneal dialysis catheter removed in February because of recurrent infection. Here today to have it replaced. Past Medical History Past Medical History: Dialysis, Hypertension, Renal Disease, Thyroid Disorder Additional Past Medical History / Comment(s): end stage kidney failure, HEMODI [id number] History of Any Multi-Drug Resistant Organisms: None Reported Past Surgical History: No Surgical Hx Reported Additional Past Surgical History / Comment(s): HEMODIALYSIS CATH, HAD PTDC-BUT IT GOT INFECTED, Past Anesthesia/Blood Transfusion Reactions: No Reported Reaction Smoking Status: Never smoker - Past Family History Mother Family Medical History: Congestive Heart Failure (CHF) Father Family Medical History: No Reported History Medications and Allergies Home Medications Medication Instructions Recorded Confirmed Type Furosemide [Lasix] 40 mg PO DIRECTED 06/05/21 07/22/23 History calcitrioL 0.25 mcg PO HS 06/05/21 07/22/23 History Atorvastatin [Lipitor] 20 mg PO HS 02/04/23 07/22/23 History Ezetimibe [Zetia] 10 mg PO HS 02/04/23 07/22/23 History Levothyroxine Sodium [Synthroid] 50 mcg PO DAILY 02/04/23 07/22/23 History Losartan Potassium 50 mg PO DAILY@1330 02/04/23 07/22/23 History Magnesium Oxide [Mag-Ox] 400 mg PO W/SUPPER 02/04/23 07/22/23 History Folic Acid/Vit B Complex and C 0.8 mg PO DAILY 03/22/23 07/22/23 History [Nephro-Graciela Tablet] allopurinoL [Zyloprim] 100 mg PO DAILY 03/22/23 07/22/23 History Allergies Allergy/AdvReac Type Severity Reaction Status Date / Time No Known Allergies Allergy Verified 07/22/23 11:50 Surgical - Exam Vital Signs Temp Pulse Resp BP Pulse Ox 97.0 F L 71 16 185/79 99 07/22/23 11:42 07/22/23 11:42 07/22/23 11:42 07/22/23 11:42 07/22/23 11:42 Physical exam: General: Well-developed, well-nourished HEENT: Normocephalic, sclerae nonicteric Abdomen: Nontender, nondistended Extremities: No edema Neuro: Alert and oriented Results - Labs 07/22/23 12:10 07/22/23 12:10 Abnormal Lab Results - Last 24 Hours (Table) 07/22/23 Range/Units 12:10 BUN 60 H (7-17) mg/dL Creatinine 8.19 H* (0.52-1.04) mg/dL Diabetes panel 07/22/23 Range/Units 12:10 Sodium 140 (137-145) mmol/L Potassium 4.9 (3.5-5.1) mmol/L Chloride 105 (98-107) mmol/L Carbon Dioxide 23 (22-30) mmol/L BUN 60 H (7-17) mg/dL Creatinine 8.19 H* (0.52-1.04) mg/dL Glucose 86 (74-99) mg/dL Calcium 10.1 (8.4-10.2) mg/dL Calcium panel 07/22/23 Range/Units 12:10 Calcium 10.1 (8.4-10.2) mg/dL Pituitary panel 07/22/23 Range/Units 12:10 Sodium 140 (137-145) mmol/L Potassium 4.9 (3.5-5.1) mmol/L Chloride 105 (98-107) mmol/L Carbon Dioxide 23 (22-30) mmol/L BUN 60 H (7-17) mg/dL Creatinine 8.19 H* (0.52-1.04) mg/dL Glucose 86 (74-99) mg/dL Calcium 10.1 (8.4-10.2) mg/dL Adrenal panel 07/22/23 Range/Units 12:10 Sodium 140 (137-145) mmol/L Potassium 4.9 (3.5-5.1) mmol/L Chloride 105 (98-107) mmol/L Carbon Dioxide 23 (22-30) mmol/L BUN 60 H (7-17) mg/dL Creatinine 8.19 H* (0.52-1.04) mg/dL Glucose 86 (74-99) mg/dL Calcium 10.1 (8.4-10.2) mg/dL Assessment and Plan (1) Renal failure Narrative/Plan: 37-year-old female with renal failure. Will proceed with peritoneal dialysis catheter insertion. Risks of bleeding, infection, scarring, poor function, adhesions, possible need for laparoscopy, bowel injury all discussed. She understands and wishes to proceed. Current Visit: No Status: Acute Code(s): N19 - UNSPECIFIED KIDNEY FAILURE SNOMED Code(s): 90025795
[2023-07-22] MEDS: BUPIVACAINE (PF) 0.25% 30 ML VIAL SQ ONE ×2 (12:55)
[2023-07-22] MEDS: MINERAL OIL 1 APPLIC/ML OIL TOPICAL ONE (12:57)
[2023-07-22] MEDS: SODIUM CHLORIDE 0.9% 500 ML 500 ML IV ONE (13:26)
[2023-07-22] MEDS ORDERED: NALOXONE 0.4 MG/ML 1 ML VIAL IV PRN (14:00)
[2023-07-22] MEDS ORDERED: HYDROcodone/APAP 5-325MG 1 EACH TAB PO PRN (14:00)
[2023-07-22 14:01] VITALS: TEMP 96.9
--- NOTE | 2023-07-22 14:05 | P.OP ---
Date of Procedure: 07/22/23 Procedure(s) Performed: PREOPERATIVE DIAGNOSIS: Renal failure POSTOPERATIVE DIAGNOSIS: Same PROCEDURE: Peritoneal dialysis catheter insertion SURGEON: Rand EBL: 10 cc ANESTHESIA: Sedation plus local COMPLICATIONS: None OPERATIVE PROCEDURE: The patient was placed in the operative table in the supine position. The abdomen was prepped and draped in usual sterile fashion. A small vertical incision was made in the left periumbilical location. Dissection down through the subcutaneous tissues took place using electrocautery. The anterior rectus was divided vertically using the scalpel. The rectus was bluntly. The posterior rectus was visualized. An 0 Vicryl pursestring was placed. A small opening in the posterior rectus fascia and peritoneum took place using a Metzenbaum scissors. There were no adhesions to the suture that was placed. The pigtail catheter was advanced into the pelvis over a stylette. No resistance was met. The inner cuff was secured to the fascia using the 0 Vicryl pursestring that was placed. The catheter was tunneled to an exit site in the left lateral lower quadrant. The catheter was connected to the 1 L bag of saline and approximated 800 mL of saline was easily introduced into the peritoneal cavity. The fluid was then allowed to evacuate. The majority of the fluid was returned. The anterior rectus fascia was then reapproximated using a running 0 Vicryl stitch. The subcutaneous tissues reprepped using 3-0 Vicryl sutures and the skin using 4-0 Monocryl sutures. The outpatient dialysis adapter was applied to the end of the catheter. Sterile dressings were then applied after skin glue was placed over the incision. DISPOSITION: Stable to recovery room
[2023-07-22 14:51] VITALS: RESP 16
[2023-07-22 15:43] VITALS: BP 149/90; PULSE 57
== END 2023-07-22 15:32 | disposition home or self-care (01) ==
LOC: OR 11:24
PROVIDERS: ATTEND Surgery
DX: I12.0 Hypertensive chronic kidney disease with stage 5 chronic kidney disease or end stage renal disease (principal); N18.6 End stage renal disease; E78.5 Hyperlipidemia, unspecified; E07.9 Disorder of thyroid, unspecified; Z79.890 Hormone replacement therapy; Z99.2 Dependence on renal dialysis; Z79.899 Other long term (current) drug therapy
CPT/HCPCS: 81025; 80048; 85027; 49421; C1752; J2250; J1644; J1100; J0690; J2405; J2001; J3010; J2704; J0665

== ENCOUNTER 2023-07-23 10:07 | Emergency (ER) | payer BC, MEDICARE ==
[2023-07-23 10:35] VITALS: BP 158/88; PULSE 68; RESP 18; TEMP 98
--- NOTE | 2023-07-23 11:36 | ED ---
Skin/Abscess/FB HPI - General Chief complaint: Skin/Abscess/Foreign Body Stated complaint: Catheter issues Time Seen by Provider: 07/23/23 11:33 Source: patient Mode of arrival: ambulatory Limitations: no limitations - History of Present Illness Initial comments: 37-year-old female presented to the ER with a chief complaint of peritoneal dialysis port complication. Patient reports she had a port placed yesterday by Dr. Gordillo. She states last night she noticed some bleeding from the insertion site. She states she woke up this morning and the gauze pads were soaked. Patient is scheduled for dialysis today at 2 PM through report and her right upper extremity. She denies any pain, fevers, chills, nausea, vomiting or other complaints. - Related Data Home Medications Medication Instructions Recorded Confirmed Furosemide [Lasix] 40 mg PO DIRECTED 06/05/21 07/22/23 calcitrioL 0.25 mcg PO HS 06/05/21 07/22/23 Atorvastatin [Lipitor] 20 mg PO HS 02/04/23 07/22/23 Ezetimibe [Zetia] 10 mg PO HS 02/04/23 07/22/23 Levothyroxine Sodium [Synthroid] 50 mcg PO DAILY 02/04/23 07/22/23 Losartan Potassium 50 mg PO DAILY@1330 02/04/23 07/22/23 Magnesium Oxide [Mag-Ox] 400 mg PO W/SUPPER 02/04/23 07/22/23 Folic Acid/Vit B Complex and C 0.8 mg PO DAILY 03/22/23 07/22/23 [Nephro-Graciela Tablet] allopurinoL [Zyloprim] 100 mg PO DAILY 03/22/23 07/22/23 Previous Rx's Medication Instructions Recorded HYDROcodone/APAP 5-325MG [[place] 1 tab PO Q6HR PRN 3 Days #6 tab 07/22/23 5-325] Allergies Allergy/AdvReac Type Severity Reaction Status Date / Time No Known Allergies Allergy Verified 07/23/23 10:18 Review of Systems ROS Statement: Those systems with pertinent positive or pertinent negative responses have been documented in the HPI. ROS Other: All systems not noted in ROS Statement are negative. Past Medical History Past Medical History: Dialysis, Hypertension, Renal Disease, Thyroid Disorder Additional Past Medical History / Comment(s): end stage kidney failure, [id number] History of Any Multi-Drug Resistant Organisms: None Reported Past Surgical History: No Surgical Hx Reported Additional Past Surgical History / Comment(s): HEMODIALYSIS CATH, HAD PTDC-BUT IT GOT INFECTED, Past Anesthesia/Blood Transfusion Reactions: No Reported Reaction Past Psychological History: No Psychological Hx Reported Smoking Status: Never smoker Past Alcohol Use History: None Reported Past Drug Use History: None Reported - Past Family History Mother Family Medical History: Congestive Heart Failure (CHF) Father Family Medical History: No Reported History General Exam Limitations: no limitations General appearance: alert, in no apparent distress Respiratory exam: Present: normal lung sounds bilaterally. Absent: respiratory distress, wheezes, rales, rhonchi, stridor Cardiovascular Exam: Present: regular rate, normal rhythm, normal heart sounds. Absent: systolic murmur, diastolic murmur, rubs, gallop, clicks GI/Abdominal exam: Present: soft, normal bowel sounds, other (Peritoneal dialysis port in left lower quadrant. No active bleeding present.). Absent: distended, tenderness, guarding, rebound, rigid Skin exam: Present: warm, dry, intact, normal color. Absent: rash Course Vital Signs 07/23/23 10:16 Temperature 98 F Pulse Rate 68 Respiratory 18 Rate Blood Pressure 158/88 O2 Sat by Pulse 100 Oximetry Medical Decision Making - Medical Decision Making Was pt. sent in by a medical professional or institution ([facility], FOREIGN COLLECTION CLERK, urgent care, hospital, or custodial...) When possible be specific @ -No Did you speak to anyone other than the patient for history (EMS, parent, family, police, friend...)? What history was obtained from this source @ -No Did you review nursing and triage notes (agree or disagree)? Why? @ -I reviewed and agree with nursing and triage notes Were old charts reviewed (outside hosp., previous admission, EMS record, old EKG, old radiological studies, urgent care reports/EKG's, custodial records)? Report findings @ -No old charts were reviewed Differential Diagnosis (chest pain, altered mental status, abdominal pain women, abdominal pain men, vaginal bleeding, weakness, fever, dyspnea, syncope, headache, dizziness, GI bleed, back pain, seizure, CVA, palpatations, mental health, musculoskeletal)? @ -Port malfunction, cellulitis, infection this list is not meant to be all- inclusive EKG interpreted by me (3pts min.). @ -None X-rays interpreted by me (1pt min.). @ -None done CT interpreted by me (1pt min.). @ -None done U/S interpreted by me (1pt. min.). @ -None done What testing was considered but not performed or refused? (CT, X-rays, U/S, labs)? Why? @ -None What meds were considered but not given or refused? Why? @ -None Did you discuss the management of the patient with other professionals (professionals i.e. , PA, FOREIGN COLLECTION CLERK, lab, RT, psych nurse, dialysis social worker, travel freight and passenger agent, teacher, training systems officer, caser up)? Give summary @ -No Was smoking cessation discussed for >3mins.? @ -No Was critical care preformed (if so, how long)? @ -No Were there social determinants of health that impacted care today? How? (Homelessness, low income, unemployed, alcoholism, drug addiction, transportation, low edu. Level, literacy, decrease access to med. care, detention, rehab)? @ -No Was there de-escalation of care discussed even if they declined (Discuss DNR or withdrawal of care, Hospice)? DNR status @ -No What co-morbidities impacted this encounter? (DM, HTN, Smoking, COPD, CAD, Cancer, CVA, ARF, Chemo, Hep., AIDS, mental health diagnosis, sleep apnea, morbid obesity)? @ -CKD Was patient admitted / discharged? Hospital course, mention meds given and route, prescriptions, significant lab abnormalities, going to OR and other pertinent info. @ -Discharge. 37-year-old female presented to the ER with chief complaint of peritoneal dialysis port. History and physical exam completed. Vitals stable. Patient in no signs of acute distress and nontoxic-appearing. Peritoneal dialysis port in place in left lower quadrant. No active bleeding. There is bloodsoaked gauze covering port. No tenderness to abdomen. Surrounding skin without erythema, contusion or rash. Dressing replaced with gauze and Tegaderm. Advise close follow-up with Dr. Gordillo. Patient reports that she has follow-up appointment soon. Strict return parameters discussed. Patient discharged stable condition. Patient verbally expressed understanding and agreement with care plan. Case discussed with ED attending, Dr. Torres. Undiagnosed new problem with uncertain prognosis? @ -No Drug Therapy requiring intensive monitoring for toxicity (Heparin, Nitro, Insulin, Cardizem)? @ -No Were any procedures done? @ -No Diagnosis/symptom? @ -Peritoneal dialysis port malfunction Acute, or Chronic, or Acute on Chronic? @ -Acute Uncomplicated (without systemic symptoms) or Complicated (systemic symptoms)? @ -Uncomplicated Side effects of treatment? @ -No Exacerbation, Progression, or Severe Exacerbation? @ -No Poses a threat to life or bodily function? How? (Chest pain, [place], [place], pneumonia, PE, COPD, DKA, ARF, appy, cholecystitis, CVA, Diverticulitis, Homicidal, Suicidal, threat to staff... and all critical care pts) @ -No Disposition Clinical Impression: Peritoneal dialysis catheter in place Disposition: HOME SELF-CARE Condition: Stable Instructions (If sedation given, give patient instructions): Peritoneal Dialysis Catheter Care (ED) Additional Instructions: Please follow-up with Dr. Gordillo as scheduled. Return to the ER for any new or worsening symptoms. Is patient prescribed a controlled substance at d/c from ED?: No Referrals: Tegan Hayden MD [Primary Care Provider] - 1-2 days Francisco Gordillo MD [Medical Doctor] - 1-2 days Time of Disposition: 11:36
== END 2023-07-23 12:51 | disposition home or self-care (01) ==
LOC: EC 10:07
DX: T85.691A Other mechanical complication of intraperitoneal dialysis catheter, initial encounter (principal); I12.0 Hypertensive chronic kidney disease with stage 5 chronic kidney disease or end stage renal disease; N18.6 End stage renal disease; Z99.2 Dependence on renal dialysis; Z79.899 Other long term (current) drug therapy
CPT/HCPCS: 99282